=== PATIENT | male | born 1970 | race African-American/Black ===

== ENCOUNTER → 2016-03-03 | Outpatient (CLI) | payer OTHER ==
[~2016-03-03] MED LIST: ALBU2SYP9 INH
== END | disposition home or self-care (01) ==
LOC: C.LAB1850 10:41
PROVIDERS: ATTEND Internal Medicine Infectious Disease
DX: B18.2 Chronic viral hepatitis C (principal)

== ENCOUNTER 2016-04-01 03:18 | Emergency (ER) | payer OTHER ==
[~2016-04-01] VITALS: Ht 188 cm; Wt 89.7 kg
[2016-04-01 03:25] VITALS: TEMP 36.8; Ht 188 cm; Wt 89.7 kg
--- NOTE | 2016-04-01 04:29 | EMERGENCY ROOM VISIT NOTE ---
History First contact with patient: 03:30 Chief Complaint: FALL Stated Complaint: FALL--WORK RELATED History of Present Illness The patient is a 45 year old male who presents to the Emergency Room with complaints of a fall which occurred just prior to arrival. 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 He fell backward and struck his head. He is unsure if he lost consciousness. He states that he did have the wind knocked out of him. He reports pain in his head, neck, in the middle of his chest. He reports some mild left shoulder pain. He denies any nausea, vomiting, confusion, blurred vision, slurred speech, numbness or weakness. He denies any other injuries. He rates his overall discomfort a 5/ 10. He has not taken any medications for his pain. Review of Systems A complete 6-point Review of Systems was discussed with the patient, with pertinent positives and negatives listed in the History of Present Illness. All remaining Review of Systems questions can be considered negative unless otherwise specified. Past Medical/Surgical History Medical Problems: (1) Chest pain (2) Heroin abuse (3) Hip pain (4) Rash Family History Diabetes mellitus FH: cancer FHx: hypertension Social History Smoking Status: Never Smoker Alcohol Use: occasionally Drug Use: heroin Marital Status: in relationship Housing Status: lives with significant other Occupation Status: employed Current/Historical Medications Scheduled PRN Albuterol Sulf (Ventolin), 1-2 PUFF INH for Shortness of Breath Allergies Coded Allergies: No Known Allergies (Unverified , 01/12/16) Physical Exam Vital Signs Date Time Temp Pulse Resp B/P Pulse Ox O2 Delivery O2 Flow Rate FiO2 04/01/16 04:34 63 20 125/73 98 04/01/16 03:25 36.8 70 20 121/80 98 Room Air Physical Exam VITALS: Vitals are noted on the nurse's note and reviewed by myself. Vital signs stable. GENERAL: This is a 45-year-old male, in no acute distress, nondiaphoretic, well- developed well-nourished. SKIN: Capillary reflex less than 2 seconds. HEENT: Normocephalic. PERRLA. EOMI. Nares patent. Mucous membranes moist. Neck is supple without nuchal rigidity. HEART: Regular rate and rhythm without murmurs gallops or rubs. LUNGS: Clear to auscultation bilaterally without wheezes, rales or rhonchi. ABDOMEN: Positive bowel sounds x 4. Soft, nontender. MUSCULOSKELETAL: Mild tenderness over the cervical spine. There is tenderness over the anterior and superior left shoulder. No tenderness of the chest. NEURO: Patient was alert and oriented to person place and time. Normal sensation to light and sharp touch. Deep tendon reflexes 2+ throughout. No focal neurological deficits. Medical Decision & Procedures ER Provider Diagnostic Interpretation: CT HEAD: No acute intracranial abnormality. No acute osseous abnormality. The paranasal sinuses are patent. CT C-SPINE: No acute fracture or traumatic malalignment of the cervical spine. Radiologist: Narciso Brandon MD Medical Decision Differential diagnosis includes closed head injury, fracture, contusion, among others. The patient was evaluated as above. Labs were drawn and IV access was obtained. Imaging studies were performed and read by radiology as above. The patient declined analgesics. The patient was reassessed multiple times during their stay in the emergency department and remained in stable condition. The patient is a 45-year-old female who presents today after a fall. CT of the head and neck were performed and read by a statrad with no acute findings. A single view chest x-ray and left shoulder x-ray were performed due to the patient's complaints of left shoulder pain and central chest pain and were read by myself and my attending with no acute fractures of the left shoulder and no evidence of pneumothorax. The patient was informed of all findings. He will follow-up with his primary care provider as needed. He verbalized understanding of my assessment and treatment plan was discharged home in good condition. Impression Primary Impression: Closed head injury Additional Impressions: Contusion of multiple sites Work related injury Departure Information Dispostion Home / Self-Care Condition GOOD Referrals No Doctor, Assigned (PCP) Patient Instructions My [facility] Additional Instructions You have been treated in the Emergency Department for a Closed Head Injury. CT Scan of your head/brain demonstrated no acute bleeding or other abnormalities. This does not completely rule out the risk for future damage to the brain. For pain control, you can use the following stdu-utv-qyoxdjh medicines (if >12 yo): - Regular strength (325mg/tab) Tylenol (acetaminophen) 2 tabs every 4-6 hours as needed. Do not exceed 12 tablets in a 24 hour period. Avoid taking more than 4 grams (4000 mg) of Tylenol per day. This includes any other sources of acetaminophen you may take on a regular basis. - Regular strength (200 mg/tab) Advil (ibuprofen) 1-2 tabs every 4-6 hours as needed. Do not exceed a dose of 3200 mg per day. Follow-up with the Workmen's Compensation provider in 3-4 days for further evaluation. Return to the Emergency Department if your current symptoms worsen despite treatment course outlined above, or if you develop any of the following symptoms : intractable pain despite aforementioned treatment course, visual disturbances , loss of vision, unilateral weakness or facial drooping, slurring of speech, loss of coordination, or loss of consciousness. Problem Qualifiers Primary Impression: Closed head injury Encounter type: initial encounter Qualified Codes: S09.90XA - Unspecified injury of head, initial encounter
[2016-04-01 04:34] VITALS: BP 125/73; PULSE 63; O2SAT 98
--- NOTE | 2016-04-01 06:34 | DIAGNOSTIC IMAGING REPORT ---
CHEST ONE VIEW PORTABLE CLINICAL HISTORY: fall, chest pain trauma. Pain. COMPARISON STUDY: 12/18/2015 FINDINGS: The bones soft tissues and hemidiaphragms are normal. The cardiomediastinal silhouette is normal. The lungs are clear. The pulmonary vasculature is normal. IMPRESSION: Negative chest. Electronically signed by: Chaitanya Spence M.D. 04/01/2016 6:33 AM Dictated Date/Time: 04/01/2016 6:32 AM
--- NOTE | 2016-04-01 06:43 | DIAGNOSTIC IMAGING REPORT ---
LEFT SHOULDER MIN 2 VIEWS ROUTINE CLINICAL HISTORY: fall, left shoulder pain trauma COMPARISON: None. DISCUSSION: Nondisplaced cortical fractures left third and fourth ribs. Shoulder itself is negative for acute bony abnormality. There is no evidence for soft tissue swelling. IMPRESSION: Nondisplaced cortical fractures left third and fourth ribs. The shoulder specifically is negative. Electronically signed by: Chaitanya Spence M.D. 04/01/2016 6:41 AM Dictated Date/Time: 04/01/2016 6:41 AM
--- NOTE | 2016-04-01 06:46 | DIAGNOSTIC IMAGING REPORT ---
HEAD CT NONCONTRAST CT DOSE: 1151.49 mGy.cm HISTORY: Trauma fall, head injury TECHNIQUE: Multiaxial CT images of the head were performed without the use of intravenous contrast. Comparison: None. Findings: The paranasal sinuses and mastoid air cells are clear. The calvarium and skull base are intact. The ventricles and sulci are within normal limits. There is no mass, hematoma, midline shift, or acute infarct. Impression: No acute intracranial abnormality. Electronically signed by: Chaitanya Spence M.D. 04/01/2016 6:45 AM Dictated Date/Time: 04/01/2016 6:43 AM
--- NOTE | 2016-04-01 06:55 | DIAGNOSTIC IMAGING REPORT ---
CERVICAL SPINE CT CT DOSE: HISTORY: Trauma. Pain. fall, neck pain TECHNIQUE: Multiaxial CT images of the cervical spine were performed and reformatted in the sagittal and coronal plane without the use of contrast. COMPARISON: None. FINDINGS: No fractures. No subluxation. Prevertebral soft tissues and the C1-C2 interval are intact. No pneumothorax. IMPRESSION: No fractures within the cervical spine. Electronically signed by: Chaitanya Spence M.D. 04/01/2016 6:54 AM Dictated Date/Time: 04/01/2016 6:53 AM
== END 2016-04-01 04:35 | disposition home or self-care (01) ==
LOC: C.EDB 03:18 → C.EDA 04:35
DX: S09.90XA Unspecified injury of head, initial encounter (principal); T14.8 Other injury of unspecified body region; W00.0XXA Fall on same level due to ice and snow, initial encounter; Y99.0 Civilian activity done for income or pay

== ENCOUNTER → 2016-06-04 | Outpatient (CLI) | payer OTHER ==
[~2016-06-04] MED LIST changes: +PRED50TA PO
[2016-06-04 15:10] LABS: ALT/SGPT 335 U/L (12-78); AST/SGOT 242 U/L (15-37); BLOOD UREA NITROGEN 9 mg/dl (7-18); BUN/CREATININE RATIO 10.3 (10-20); CALCIUM 8.4 mg/dl (8.5-10.1); CARBON DIOXIDE 30 mmol/L (21-32); CHLORIDE 107 mmol/L (98-107); CREATININE 0.92 mg/dl (0.60-1.40); GLUCOSE 120 mg/dl (70-99); POTASSIUM 3.8 mmol/L (3.5-5.1); SODIUM 142 mmol/L (136-145)
[2016-06-04 15:13] LABS: ALB/GLOB RATIO 0.7 (0.9-2); ALKALINE PHOSPHATASE 112 U/L (45-117)
[2016-06-04 16:32] LABS: BASO ABS # 0.04 K/uL (0-0.2); BASOPHIL % 0.9 % (0-2); COMPLETE YES; EOSINOPHIL % 0.9 %; HEMATOCRIT 43.5 % (42-52); LARGE PLATELETS 1+; LYMPH ABS # 1.34 K/uL (1.2-3.4); LYMPHOCYTE % 29.7 %; MEAN CELL VOLUME 93.5 fL (80-100); MEAN CORPUSCULAR HEMOGLOBIN 31.6 pg (25-34); MEAN CORPUSCULAR HGB CONC 33.8 g/dl (32-36); MEAN PLATELET VOLUME 14.1 fL (7.4-10.4); NEUTROPHILS % 43.3 %; PLATELET COUNT 132 K/uL (130-400); PLT ESTIMATE DECREASED; RED BLOOD COUNT 4.65 M/uL (4.7-6.1); SMUDGE CELLS PRESENT; VARIANT LYM ABS # 0.73 K/uL; VARIANT LYMPHOCYTE % 16.2 %
[2016-06-07 07:46] LABS: HEPATITIS C VIRAL RNA BY PCR <15 NOT DETECTED IU/ML (<15); HEPATITIS C VIRAL RNA(LOG) PCR <1.18 NOT DETECTED LOG IU/ML (<1.18)
== END | disposition home or self-care (01) ==
LOC: C.LAB1850 12:40
PROVIDERS: ATTEND Internal Medicine Infectious Disease
DX: B18.2 Chronic viral hepatitis C (principal)

== ENCOUNTER → 2016-09-22 | Outpatient (CLI) | payer OTHER ==
[~2016-09-22] MED LIST changes: -PRED50TA PO
[2016-09-22 13:59] LABS: BASO % 0.2 %; BASO ABS # 0.01 K/uL (0-0.2); COMPLETE YES; EOS % 1.4 %; HEMATOCRIT 41.6 % (42-52); LARGE PLATELETS 1+; LYMPH % 47.8 %; LYMPH ABS # 2.05 K/uL (1.2-3.4); MEAN CELL VOLUME 95.6 fL (80-100); MEAN CORPUSCULAR HGB CONC 32.5 g/dl (32-36); MEAN PLATELET VOLUME 13.7 fL (7.4-10.4); MONO % 17.7 %; NEUT % 32.9 %; PLATELET COUNT 88 K/uL (130-400); PLT ESTIMATE DECREASED; RED BLOOD COUNT 4.35 M/uL (4.7-6.1); WHITE BLOOD COUNT 4.29 K/uL (4.8-10.8)
[2016-09-22 14:13] LABS: ALB/GLOB RATIO 0.6 (0.9-2); ALT/SGPT 255 U/L (12-78); AST/SGOT 240 U/L (15-37); BLOOD UREA NITROGEN 8 mg/dl (7-18); BUN/CREATININE RATIO 9.5 (10-20); CALCIUM 8.2 mg/dl (8.5-10.1); CARBON DIOXIDE 29 mmol/L (21-32); CHLORIDE 111 mmol/L (98-107); CREATININE 0.82 mg/dl (0.60-1.40); GLUCOSE 88 mg/dl (70-99); POTASSIUM 3.8 mmol/L (3.5-5.1); SODIUM 142 mmol/L (136-145)
[2016-09-22 14:14] LABS: ALKALINE PHOSPHATASE 103 U/L (45-117)
[2016-09-25 12:43] LABS: HEPATITIS C VIRAL RNA BY PCR <15 NOT DETECTED IU/ML (<15); HEPATITIS C VIRAL RNA(LOG) PCR <1.18 NOT DETECTED LOG IU/ML (<1.18)
== END | disposition home or self-care (01) ==
LOC: C.LAB1850 12:15
PROVIDERS: ATTEND Internal Medicine Infectious Disease
DX: B18.2 Chronic viral hepatitis C (principal)

== ENCOUNTER 2016-11-09 12:25 | Emergency (ER) | payer OTHER ==
[~2016-11-09] VITALS: Ht 188 cm; Wt 94.3 kg
[2016-11-09 12:41] VITALS: BP 151/65; PULSE 82; TEMP 36.6; O2SAT 98; Ht 188 cm; Wt 94.3 kg
[2016-11-09] MEDS ORDERED: AZITHROMYCIN 250 MG TAB PO STA (13:16)
[2016-11-09] MEDS ORDERED: CEFTRIAXONE SOD 350MG/ML 1 GM VIAL IM STA (13:16)
--- NOTE | 2016-11-09 13:19 | EMERGENCY ROOM VISIT NOTE ---
History First contact with patient: 13:04 Chief Complaint: PENILE DISCHARGE Stated Complaint: DISCHARGE Nursing Triage Summary: Pt reports yellow discharge from penis that started yesterday. Denies pain with urination. "I have two partners and somebody isn't right." History of Present Illness The patient is a 45 year old male who presents to the Emergency Room via private vehicle with complaints of "penile discharge". Patient states that he has 2 partners, and a few days ago had sexual intercourse with one of them and yesterday began noticing a yellowish white discharge from his penis. He denies any dysuria or pain. He has a history of chlamydia in the past. Review of Systems A complete 6-point Review of Systems was discussed with the patient, with pertinent positives and negatives listed in the History of Present Illness. All remaining Review of Systems questions can be considered negative unless otherwise specified. Past Medical/Surgical History Medical Problems: (1) Chest pain (2) Heroin abuse (3) Hip pain (4) Rash Family History Diabetes mellitus FH: cancer FHx: hypertension Social History Smoking Status: Current Every Day Smoker Alcohol Use: occasionally Drug Use: heroin Marital Status: in relationship Housing Status: lives with significant other Occupation Status: employed Current/Historical Medications No Active Prescriptions or Reported Meds Physical Exam Vital Signs Date Time Temp Pulse Resp B/P (MAP) Pulse Ox O2 Delivery O2 Flow Rate FiO2 11/09/16 12:41 36.6 82 18 151/65 98 Room Air Physical Exam VITAL SIGNS - Vital signs and nursing notes were reviewed. Stable. Hypertensive. GENERAL -45-year-old male appearing his stated age who is in no acute distress. Communicates well with provider and answers questions appropriately. SKIN - Without rashes. : There is cloudy white penile discharge, no tenderness. No lesions. Medical Decision & Procedures Laboratory Results Test 11/09/16 13:15 Medications Administered Medications (Trade) Dose Ordered Sig/Lora Route Start Time Stop Time Status Last Admin Dose Admin Ceftriaxone Sodium (Rocephin Im) 250 mg NOW STAT IM 11/09/16 13:16 11/09/16 13:19 DC 11/09/16 13:31 250 MG Azithromycin (Zithromax Tab) 1,000 mg NOW STAT PO 11/09/16 13:16 11/09/16 13:19 DC 11/09/16 13:30 1,000 MG Medical Decision Patient was seen and evaluated as above. He presents to us today with penile discharge. No other symptoms. He'll be treated empirically for gonorrhea/ chlamydia with 1 g of azithromycin and 250 mg of Rocephin. He is to refrain from sexual activity until he has results, and notify all sexual partners. He is to follow-up with his family doctor for elevated blood pressure. He is to return with worsening. He was educated upon worrisome symptoms which to return , had questions on discharge, and was discharged home in good condition. He is to call if the results are not called to him within the next few days. In the evaluation treatment this patient following differential diagnoses were entertained: Chlamydia, gonorrhea, among others. Impression Primary Impression: Penile discharge Departure Information Dispostion Home / Self-Care Condition GOOD Prescriptions No Active Prescriptions or Reported Meds Referrals No Doctor, Assigned (PCP) Patient Instructions My [facility] Additional Instructions You have been treated in the Emergency Department for penile discharge. You have been treated approriately You will be notified with the results, and if you do not hear back from us within the next few days please call back here at [phone] Please refrain from sexual intercourse until you have the results. Please notify any partners. Return to the emergency department if your symptoms worsen despite treatment course outlined above. Drink plenty of water and stay well hydrated. As with any trip to the Emergency Department, you should follow-up with your Primary Care Provider from today's visit. Return to the emergency department if your symptoms persist despite treatment plan outlined above or if the following symptoms occur: increased fevers, chills , low back pain, nausea/vomiting, or blood in your urine. Negative for your time.
[2016-11-11 14:58] LABS: CHLAMYDIA TRACH RNA*** NOT DETECTED (NOT DETECTED); GC (NEIS GONORRHOEAE)RNA** NOT DETECTED (NOT DETECTED)
== END 2016-11-09 13:47 | disposition home or self-care (01) ==
LOC: C.EDB 12:29 → C.EDD 13:47
DX: R36.9 Urethral discharge, unspecified (principal); F11.10 Opioid abuse, uncomplicated; F17.210 Nicotine dependence, cigarettes, uncomplicated; Z83.3 Family history of diabetes mellitus; Z80.9 Family history of malignant neoplasm, unspecified; Z82.49 Family history of ischemic heart disease and other diseases of the circulatory system

== ENCOUNTER 2017-01-11 02:03 | Emergency (ER) | payer OTHER ==
[~2017-01-11] VITALS: Ht 188 cm; Wt 92.1 kg
[2017-01-11 02:07] VITALS: TEMP 36.9; Ht 188 cm; Wt 92.1 kg
[2017-01-11] MEDS ORDERED: PRED50TA PO (02:32)
[2017-01-11 02:42] VITALS: BP 131/78; PULSE 76; O2SAT 100
--- NOTE | 2017-01-11 06:22 | EMERGENCY ROOM VISIT NOTE ---
ED Visit Note First contact with patient: 02:11 CHIEF COMPLAINT: Rash HISTORY OF PRESENT ILLNESS: This 46-year-old male patient presents to the emergency department complaining of a rash which started about 2 weeks ago. The patient believes that he started with a rash after sleeping in a hotel. He is concerned that he may have been bitten by something. The rash is primarily on his bilateral legs and lower abdomen. The patient denies fever, chills, nausea, or loss of appetite. They deny any URI symptoms. The patient has tried slmj-xyl-[id number] rid without improvement. The patient states the rash is itchy and rates the discomfort as 5/10. No change in food, soap, detergents, or other environmental factors. No new medications. No weakness or numbness. REVIEW OF SYSTEMS: A 6 system review of systems was completed with positives and pertinent negatives listed in the HPI. ALLERGIES: No known allergies MEDICATIONS: See EMR PMH: See EMR SOCIAL HISTORY: Lives locally PHYSICAL EXAM: VITALS: Vitals are noted on the nurse's note and reviewed by myself. Vital signs stable. GENERAL: Well-developed, well-nourished, black male, who is in no acute distress and resting comfortably. Patient is cooperative with the examination. MOUTH: Mucous membranes moist. Tonsils are not enlarged. Pharynx without erythema, blood, or exudate. Uvula midline. Airway patent. NECK: Supple without nuchal rigidity. No lymphadenopathy. No thyromegaly. Cervical spine is nontender. HEART: Regular rate and rhythm without murmurs gallops or rubs. LUNGS: Clear to auscultation bilaterally without wheezes, rales or rhonchi. No retractions or accessory muscle use. SKIN: The skin was with scattered areas of maculopapular rash primarily on the bilateral thighs and lower abdomen. Several areas are excoriated and difficult to identify EMERGENCY DEPARTMENT COURSE: Physical examination were performed. Nursing notes and EMR were reviewed. The patient evidently has a rash for the past few weeks. He does not appear toxic on examination. His rash is roughly in the distribution of boxer briefs, and this could be related to a number of causes. I will treat the patient with a course of prednisone and have him use Benadryl. He was asked to follow with his primary care physician for further care and management. He was pleased with plan of care voice understanding. Problem List Medical Problems: (1) Chest pain Status: Resolved (2) Heroin abuse Status: Resolved (3) Hip pain Status: Resolved (4) Rash Status: Resolved Current/Historical Medications Scheduled Prednisone (Prednisone), 50 MG PO DAILY Allergies Coded Allergies: No Known Allergies (Unverified , 01/11/17) Vital Signs Date Time Temp Pulse Resp B/P (MAP) Pulse Ox O2 Delivery O2 Flow Rate FiO2 01/11/17 02:42 76 18 131/78 100 01/11/17 02:07 36.9 78 18 135/78 96 Room Air Medications Administered Medications (Trade) Dose Ordered Sig/Lora Route Start Time Stop Time Status Last Admin Dose Admin Prednisone (PredniSONE TAB) 40 mg NOW STAT PO 01/11/17 02:31 01/11/17 02:32 DC 01/11/17 02:38 40 MG Departure Information Impression Primary Impression: Rash and nonspecific skin eruption Dispostion Home / Self-Care Condition GOOD Prescriptions Prednisone (Prednisone) 50 Mg Tab 50 MG PO DAILY for 4 Days, #4 TAB Prov: Nba Rockwell PA-C 01/11/17 Forms HOME CARE DOCUMENTATION FORM, IMPORTANT VISIT INFORMATION Patient Instructions My [facility] Additional Instructions You were seen and evaluated today on an emergency basis only. This is not a substitute for, or an effort to provide, complete comprehensive medical care. It is not possible to recognize and treat all injuries or illnesses in a single emergency department visit. For this reason it is recommended that you followup with your primary care physician this week for ongoing care and evaluation. Take prednisone as prescribed You are welcome to return to the emergency department anytime with new, worsening, or concerning symptoms.
== END 2017-01-11 02:43 | disposition home or self-care (01) ==
LOC: C.EDB 02:04
DX: R21 Rash and other nonspecific skin eruption (principal)

== ENCOUNTER 2017-06-03 16:50 | Emergency (ER) | payer OTHER ==
[~2017-06-03] VITALS: Ht 188 cm; Wt 90.8 kg
[2017-06-03 17:16] VITALS: TEMP 36.7; Ht 188 cm; Wt 90.8 kg
[2017-06-03] MEDS ORDERED: AZITHROMYCIN 250 MG TAB PO STA (18:00)
[2017-06-03] MEDS ORDERED: CEFTRIAXONE SOD 350MG/ML 1 GM VIAL IM STA (18:00)
--- NOTE | 2017-06-03 18:02 | EMERGENCY ROOM VISIT NOTE ---
History Report prepared by Joey: Brayden Steele Under the Supervision of: Dr. Carlton Giraldo D.O. First contact with patient: 17:55 Chief Complaint: STD MALE Stated Complaint: STD Nursing Triage Summary: penile disharge and burning with urination began 06/01/17 History of Present Illness The patient is a 46 year old male who presents to the Emergency Room with complaints of a persistent need for an STD check that started 2 days ago. He states that he has a history of an STD with the same 2 women. He says that this happened a couple months ago, and his symptoms went away. He thinks that the medications were a shot and an antibiotic. The patient says that he has been having penile discharge and burning with urination. He denies any testicular pain, joint pain, or joint swelling. The patient does not take any daily medications. Source of History: patient Onset: 2 days ago Position: other (global) Quality: other (need for STD check) Timing: other (persistent) Associated Symptoms: + urinary symptoms Note: Associated symptoms: Penile discharge. Denies testicular pain, joint pain, joint swelling. Review of Systems See HPI for pertinent positives & negatives. A total of 10 systems reviewed and were otherwise negative. Past Medical & Surgical Medical Problems: (1) Chest pain (2) Heroin abuse (3) Hip pain (4) Rash Family History Diabetes mellitus FH: cancer FHx: hypertension Social History Smoking Status: Current Every Day Smoker Alcohol Use: occasionally Drug Use: heroin Marital Status: in relationship Housing Status: lives with significant other Occupation Status: employed Current/Historical Medications Scheduled Doxycycline (Monohydrate) (Doxycycline Monohydrate), 100 MG PO BID Allergies Coded Allergies: No Known Allergies (Unverified , 06/03/17) Physical Exam Vital Signs Date Time Temp Pulse Resp B/P (MAP) Pulse Ox O2 Delivery O2 Flow Rate FiO2 06/03/17 18:31 77 18 144/87 98 Room Air 06/03/17 17:16 36.7 85 16 150/69 99 Room Air Physical Exam GENERAL: Patient is awake, alert, and in no acute distress. Patient is resting comfortably and showing no signs of anxiety EYES: The conjunctivae are clear. The pupils are round and reactive. EARS, NOSE, MOUTH AND THROAT: The nose is without any evidence of any deformity. Mucous membranes are moist tongue is midline NECK: The neck is nontender and supple. RESPIRATORY: Normal respiratory effort is noted there is no evidence of wheezing rhonchi or rales CARDIOVASCULAR: Regular rate and rhythm noted there no murmurs rubs or gallops normal S1 normal S2 GASTROINTESTINAL: The abdomen is soft. Bowel sounds are present in all quadrants. Abdomen is nontender : Circumcised male genitalia noted. Testicles were descended and nontender bilaterally. Clear discharge noted at urethral meatus. MUSCULOSKELETAL/EXTREMITIES: There is no evidence of gross deformity full range of motion is noted in the hips and shoulders SKIN: There is no obvious evidence of any rash. There are no petechiae, pallor or cyanosis noted. NEUROLOGIC: Patient is awake alert and oriented x3. Medical Decision & Procedures Laboratory Results Test 06/03/17 18:00 Medications Administered Medications (Trade) Dose Ordered Sig/Lora Route Start Time Stop Time Status Last Admin Dose Admin Ceftriaxone Sodium (Rocephin Im) 250 mg NOW STAT IM 06/03/17 18:00 4 18:01 DC 06/03/17 18:30 250 MG Azithromycin (Zithromax Tab) 2,000 mg NOW STAT PO 06/03/17 18:00 06/03/17 18:01 DC 06/03/17 18:31 2,000 MG ED Course 1757: The patient was evaluated in room D5. A complete history and physical examination were performed. I discussed the results and treatment plan with him. He verbalized agreement of the treatment plan. He was discharged home. 1800: Zithromax Tab 2000 mg PO, Rocephin IM 250 mg. Medical Decision Nursing notes reviewed. Differential diagnosis in this patient could include sexually transmitted disease, inflammatory urethritis, foreign body, trauma, and other differential diagnoses were considered. The patient is a 46-year-old male who presented to the emergency department for urethritis. The patient has been seen in our facility for similar problems in the past. At that time he was treated with Rocephin and Zithromax with good resolution of symptoms. The patient did have a swab that was sent for gonorrhea and Chlamydia testing. He had no signs of herpetic lesions on exam. He was encouraged to continue all medications as prescribed and follow-up with his primary care physician for reevaluation. He was also encouraged to inform all sexual contacts that they need to be tested and treated. He was also encouraged to return to the emergency department immediately if symptoms change worsen or the need arises. Medication Reconcilliation Current Medication List: was personally reviewed by me Blood Pressure Screening Patient's blood pressure: Elevated blood pressure Blood pressure disposition: Elevated BP felt to be situational Impression Primary Impression: Urethritis Scribe Attestation The scribe's documentation has been prepared under my direction and personally reviewed by me in its entirety. I confirm that the note above accurately reflects all work, treatment, procedures, and medical decision making performed by me. Departure Information Dispostion Home / Self-Care Prescriptions Doxycycline (Monohydrate) (DOXYCYCLINE MONOHYDRATE) 100 Mg Tab 100 MG PO BID, #14 TABS Prov: Carlton Giraldo, DO 06/03/17 Referrals No Doctor, Assigned (PCP) Patient Instructions My [facility], Urethritis Men Additional Instructions Continue all medications as prescribed. Continue using Motrin and Tylenol as directed for pain. Follow-up with your family doctor for reevaluation. Be sure all sexual contacts get tested and treated for STDs. They should be checked whether or not they are symptomatic. Continue to use barrier protection such as condoms until you are completely asymptomatic and cleared of all STDs.
[2017-06-03] MEDS ORDERED: DOXY100T17 PO (18:06)
[2017-06-03 18:31] VITALS: BP 144/87; PULSE 77; O2SAT 98
== END 2017-06-03 18:52 | disposition home or self-care (01) ==
LOC: C.EDB 16:51 → C.EDD 18:52
DX: N34.2 Other urethritis (principal); Z83.3 Family history of diabetes mellitus; F17.200 Nicotine dependence, unspecified, uncomplicated; F11.20 Opioid dependence, uncomplicated

== ENCOUNTER 2017-10-05 18:31 | Emergency (ER) | payer OTHER ==
[~2017-10-05] VITALS: Ht 188 cm; Wt 82.1 kg
[~2017-10-05 18:31] MED LIST changes: -ALBU2SYP9 INH; +DOXY100T17 PO
[2017-10-05 18:43] VITALS: BP 127/76; PULSE 75; TEMP 36.9; O2SAT 99; Ht 188 cm; Wt 82.1 kg
[2017-10-05] MEDS ORDERED: CEPHALEXIN 500MG HOME PACK 1 EA BTL PO ONE (19:00)
[2017-10-05] MEDS ORDERED: CEPHALEXIN MONOHYDRATE 250 MG CAP PO ONE (19:00)
[2017-10-05] MEDS ORDERED: CEPH500C2 PO (19:01)
[2017-10-05] MEDS ORDERED: DIPHTHERIA/TETANUS/PERTUSSIS 0.5 ML SYR/VIAL IM. ONE (19:15)
--- NOTE | 2017-10-05 20:02 | EMERGENCY ROOM VISIT NOTE ---
History Report prepared by Joey: Rachael Narayan Under the Supervision of: Dr. Jhonathan Treadwell M.D. First contact with patient: 18:45 Chief Complaint: WOUND INFECTION Stated Complaint: OPEN CUT ON RIGHT LEG AND LEFT LEG Nursing Triage Summary: Patient presents to ed with complaints of wound to right lawrence not healing properly. PT stated "I hit my right leg off of a car door about a month ago and it just isn't healing up." Bleeding controlled at this time. History of Present Illness The patient is a 46 year old male who presents to the Emergency Room with complaints of constant wound infections on both of his legs that onset 2.5 weeks ago. The patient notes that he banged his leg on a car door and a bed frame. The patient states that he has been picking at his wounds. He denies fever, back pain, leg pain, and discharge from the wounds. The patient states that his tetanus is not up to date. Source of History: patient Onset: 2.5 weeks ago Position: leg (bilateral) Timing: constant Modifying Factors (Worsening): other (picking at the wounds) Associated Symptoms: No fevers, No back pain Note: The patient denies leg pain and discharge from his wounds. Review of Systems See HPI for pertinent positives and negatives. A total of ten systems were reviewed and were otherwise negative. Past Medical & Surgical Medical Problems: (1) Chest pain (2) Heroin abuse (3) Hip pain (4) Rash Family History Diabetes mellitus FH: cancer FHx: hypertension Social History Smoking Status: Current Every Day Smoker Alcohol Use: occasionally Drug Use: heroin Marital Status: in relationship Housing Status: lives with significant other Occupation Status: employed Current/Historical Medications Scheduled Cephalexin Monohydrate (Keflex), 500 MG PO QID Doxycycline (Monohydrate) (Doxycycline Monohydrate), 100 MG PO BID Allergies Coded Allergies: No Known Allergies (Unverified , 06/03/17) Physical Exam Vital Signs Date Time Temp Pulse Resp B/P (MAP) Pulse Ox O2 Delivery O2 Flow Rate FiO2 10/05/17 18:43 36.9 75 20 127/76 99 Room Air Physical Exam GENERAL: Awake, alert, well-appearing, in no distress. HENT: Normocephalic, atraumatic. Oropharynx unremarkable. Poor dentition EYES: Normal conjunctiva. Sclera non-icteric. NECK: Supple. No nuchal rigidity. RESPIRATORY: Clear to auscultation. No wheezes. Normal respiratory effort. CARDIAC: Normal rate. Normal rhythm. Extremities warm and well perfused. GI: Soft, non-distended. No tenderness to palpation. No rebound or guarding. RECTAL: Deferred. MUSCULOSKELETAL: Atraumatic. Chest examination reveals no tenderness. LOWER EXTREMITIES: Calves are equal size bilaterally and non-tender. 5 cm right mid tibia granulation wound with slight erythema. 2 cm distal tibial wound. No exposed bone or bony tenderness. No crepitus or fluctuance. Left proximal tibial papal present. 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 NEURO: Normal sensorium. No sensory or motor deficits noted. No facial droop. SKIN: Warm and dry. No rash or jaundice noted. Medical Decision & Procedures Medications Administered Medications (Trade) Dose Ordered Sig/Lora Route Start Time Stop Time Status Last Admin Dose Admin Cephalexin Monohydrate (Keflex Cap) 500 mg NOW ONCE PO 10/05/17 19:00 10/05/17 19:01 DC 10/05/17 19:08 500 MG Cephalexin Monohydrate (Keflex 500MG Home Pack) 1 homepack NOW ONCE PO 10/05/17 19:00 10/05/17 19:01 DC 10/05/17 19:00 1 HOMEPACK Diphtheria/ Pertussis/Tetanus Vacc (Adacel Inj) 0.5 ml ONCE ONCE IM. 10/05/17 19:15 10/05/17 19:16 DC 10/05/17 19:13 0.5 ML ED Course 1844: The patient was evaluated in room A3. A complete history and physical exam was performed. 1899: Ordered Cephalexin Monohydrate 1 homepack PO, Keflex Cap 500 mg, PO. 1914: Ordered Adacel Inj 0.5 ml IM. 1917: I reevaluated the patient. Discussed results and discharge instructions: he verbalized understanding and agreement. The patient is ready for discharge. Medical Decision Differential diagnosis: Etiologies such as cellulitis, abscess, MRSA infection, DVT, necrotizing fasciitis, dermatitis, drug eruption, as well as others were entertained.. treatment. Return instructions were outlined and the patient was discharged in stable condition. Patient presents after cutting his leg about a month ago on an edge of a car. Unsure tetanus status; this was updated today. Some slight tenderness around the wound on his right lawrence. States has been healing due to picking at it the wound has been very slow to heal at all . Given its size may have been amenable to sutures when it occurred but not now. No signs of Nec Fas or abscess. Doubt DVT. Wound is granulating and predominantly closed with some erythema present without significant discharge. No prior medical care for this. No systemic symptoms of other illness or sepsis. Denies other complaints. Some concerning signs of possible early cellulitis and will put on a brief course of Keflex. Wounds were cleaned and bandaged. Again tetanus was updated. Recommended he follow-up with her regular doctor and have the wound reevaluated. Discussed return criteria. Stable for discharge. Medication Reconcilliation Current Medication List: was personally reviewed by me Impression Primary Impression: Leg wound, right Additional Impression: Cellulitis of leg Scribe Attestation The scribe's documentation has been prepared under my direction and personally reviewed by me in its entirety. I confirm that the note above accurately reflects all work, treatment, procedures, and medical decision making performed by me. Departure Information Dispostion Home / Self-Care Prescriptions Cephalexin Monohydrate (KEFLEX) 500 Mg Cap 500 MG PO QID for 5 Days, #20 CAP Prov: Jhonathan Treadwell M.D. 10/05/17 Forms WORK / SCHOOL INSTRUCTIONS, HOME CARE DOCUMENTATION FORM, IMPORTANT VISIT INFORMATION Patient Instructions Wound Care, Wound Care Dc, [facility] Additional Instructions Please continue to monitor your wounds for any signs of worsening infection. Utilize the antibiotics prescribed. Please refrain from picking at your wounds. Please keep them dressed to promote healing. Would recommend follow- up with a primary care provider in the next week for reevaluation of your wounds. Please feel free to return here at any time for any concerns regarding her wounds or other problems. Problem Qualifiers Primary Impression: Leg wound, right Encounter type: initial encounter Qualified Codes: S81.801A - Unspecified open wound, right lower leg, initial encounter Additional Impression: Cellulitis of leg Laterality: right Qualified Codes: L03.115 - Cellulitis of right lower limb
== END 2017-10-05 19:12 | disposition home or self-care (01) ==
LOC: C.EDB 18:32 → C.EDA 19:12
DX: S81.801A Unspecified open wound, right lower leg, initial encounter (principal); W26.8XXA Contact with other sharp object(s), not elsewhere classified, initial encounter; L03.115 Cellulitis of right lower limb; Z23 Encounter for immunization; F17.200 Nicotine dependence, unspecified, uncomplicated

== ENCOUNTER 2017-10-14 17:18 | Emergency (ER) | payer OTHER ==
[~2017-10-14] VITALS: Ht 188 cm; Wt 81.6 kg
[2017-10-14 17:21] VITALS: TEMP 36.8; Ht 188 cm; Wt 81.6 kg
[2017-10-14] MEDS ORDERED: LIDOCAINE 1% BUFFERED INJ 20 ML VIAL INFIL STA (17:39)
[2017-10-14] MEDS ORDERED: CEPHALEXIN MONOHYDRATE 250 MG CAP PO STA (17:39)
[2017-10-14] MEDS ORDERED: SULFAMETHOXAZOLE/TRIMETHOPRIM DS 800/160MG TAB PO STA (17:39)
[2017-10-14] MEDS ORDERED: CEPH500C PO (18:25)
[2017-10-14] MEDS ORDERED: SULF800T23 PO (18:25)
--- NOTE | 2017-10-14 18:25 | EMERGENCY ROOM VISIT NOTE ---
ED Visit Note First contact with patient: 17:28 Chief Complaint: Left great Toe Ingrown Toenail, skin lesions on the posterior scalp and buttock History of Present Illness: This patient is a 46-year-old male who presents to the Emergency Department, ambulatory, for evaluation of their left great Toe Ingrown Toenail. Patient reports that they have been experiencing pain over the medial aspect of the left great Toe for 1.5 weeks. They report that they have tried no OTC remedies or medications. They have not had previous ingrown toenails in the past. They deny any numbness or tingling into the distal extremity. The patient also reports skin lesions on his buttocks and posterior scalp. He states these have been present for approximately 1-2 weeks. He thought they were pimples and has been attempting to pop them without relief. He denies any drainage from the wounds. They have tried no medications for the pain. Patient rates current discomfort as a 3/10. Patient denies fever, chills, nausea, vomiting, body aches, or other concerning symptoms. The patient is not diabetic. Patient's Tetanus status is currently up-to-date. Medications: None Allergies: None PMH: None SHx: The patient lives locally with family. He admits to smoking cigarettes. He denies drug, alcohol use. ROS: All pertinent positive and negative review of systems are appropriately documented in the History of Present Illness. Physical Exam: VITAL SIGNS - Vital signs and nursing notes were reviewed. GENERAL -46-year-old black male appearing his stated age who is in no acute distress. Communicates well with provider and answers questions appropriately. SKIN -erythematous, ulcerative lesions on the posterior scalp and right buttock. The year is no active drainage or surrounding erythema. There is no abscess palpable. MUSCULOSKELETAL - There is edema and erythema noted on the medial aspect of the left distal Great Toe. This area is extremely tender to palpation. There is purulent drainage appreciated. No erythema extending up the toe. No lymphangitic streaking appreciated. Patient has full range of motion of the toe. NEUROLOGIC - Spinothalamic tract was found to be intact with ability to discriminate sharp versus dull sensation throughout the left great toe and foot. No sensory defects of the dorsal column were appreciated utilizing light touch for evaluation. VASCULAR - Capillary refill was <2 seconds. ED Course: Patient was seen and evaluated by myself. Costs and benefits of performing ingrown toenail excision were discussed with the patient who verbalizes understanding. Verbal consent was obtained prior to performing the procedure. 4 cc of 1% buffered lidocaine without epinephrine was used to perform a digital block of the first digit. The wound was cleansed and prepped in the typical sterile fashion utilizing normal saline and Betadine. The wound was sterilely draped. Once proper anesthetization was established, the medial aspect of the left Great toenail was from the nailbed and cuticle utilizing blunt dissection with a pair of scissors. This section of the nail was excised with a pair of hemostats. Forceps were used to remove the section of the toenail. The area was explored and no further material was present in the nailbed or cuticle. The area was copiously cleansed with normal saline and Betadine. The toe was dressed with an antibiotic ointment dressing. Patient tolerated the procedure well. No complications were met. Patient received initial dose of Keflex and Bactrim here in the ED. They will be placed on a short course of Keflex and Bactrim due to the ingrown toenail infection as well as other skin lesions as an outpatient. Patient educated on worrisome symptoms for return visit to the Emergency Department. Patient discharged to home afebrile and in good condition. I attest that I have personally reviewed the patient's current medication list. Patient was found to have normal blood pressure on screening and does not require follow-up. Differential diagnosis includes ingrown toenail, paronychia, infection, fungal, scabies, herpes, dermatitis, eczema, cellulitis, abscess, viral, musculoskeletal etiology, hepatic abnormality, malignancy, and others Impression: Left great Toe Ingrown Toenail - Excised, skin lesions The chart was completed utilizing [employer] Speech voice recognition software. Grammatical errors, random word insertions, pronoun errors, and incomplete sentences are an occasional consequence of this system due to software limitations, ambient noise, and hardware issues. Any formal questions or concerns about the content, text, or information contained within the body of this dictation should be directly addressed to the provider for clarification. Problem List Medical Problems: (1) Chest pain Status: Resolved (2) Heroin abuse Status: Resolved (3) Hip pain Status: Resolved (4) Rash Status: Resolved Current/Historical Medications Scheduled Cephalexin Monohydrate (Keflex), 500 MG PO QID Doxycycline (Monohydrate) (Doxycycline Monohydrate), 100 MG PO BID Sulfa/Trimethoprim (Bactrim Ds 800MG/160MG), 1 TAB PO BID Allergies Coded Allergies: No Known Allergies (Unverified , 06/03/17) Vital Signs Date Time Temp Pulse Resp B/P (MAP) Pulse Ox O2 Delivery O2 Flow Rate FiO2 10/14/17 18:38 75 18 121/70 96 Room Air 10/14/17 17:21 36.8 71 18 128/75 95 Room Air Medications Administered Medications (Trade) Dose Ordered Sig/Lora Route Start Time Stop Time Status Last Admin Dose Admin Lidocaine HCl (Buffered Lidocaine 1% Inj) 20 ml ONE STAT INFIL 10/14/17 17:39 10/14/17 17:41 DC 10/14/17 17:39 20 ML Cephalexin Monohydrate (Keflex Cap) 500 mg NOW STAT PO 10/14/17 17:39 10/14/17 17:41 DC 10/14/17 17:39 500 MG Trimethoprim/ Sulfamethoxazole (Septra Ds 800/ 160MG Tab) 1 tab NOW STAT PO 10/14/17 17:39 10/14/17 17:41 DC 10/14/17 17:39 1 TAB Departure Information Impression Primary Impression: Ingrown left greater toenail Additional Impression: Skin ulcer Dispostion Home / Self-Care Condition GOOD Prescriptions Sulfa/Trimethoprim (Bactrim Ds 800MG/160MG) Tab 1 TAB PO BID for 10 Days, #20 TAB Prov: Rose Almanza PA-C 10/14/17 Cephalexin Monohydrate (Keflex) 500 Mg Cap 500 MG PO QID for 10 Days, #40 CAP Prov: Rose Almanza PA-C 10/14/17 Referrals No Doctor, Assigned (PCP) Patient Instructions ED Ingrown Toenail Excised, [facility] Additional Instructions Please keep the toe covered with antibiotic ointment and a bandage for the next week. Proper wound care is essential for adequate wound healing and infection prevention. You can soak the foot/toe in an Epsom Salt bath or warm soapy water for comfort. Look for signs of infection of the wound including: increased pain, swelling, foul discharge, streaking, or increased temperature. If any of these are noticed you should return to the Emergency Department for further assessment and treatment. As with any removal of nail tissue, there is potential that you may not re-grow this portion of the nail. This may or may not be permanent. Cephalexin(Keflex) 500mg: Take one pill four times daily for 10 days for your skin infection. All antibiotics can cause diarrhea. If this occurs and you feel worse or it does not resolve in 1-2 days follow up with your doctor or return to the Emergency Department as this could be signs of serious underlying problems. Any medication can cause an allergic reaction, stop the pills immediately and return to the ER for rash, hives, breathing difficulties, or swelling. Trimethoprim-Sulfamethoxazole(Bactrim DS): Take one pill twice daily for 10 days for your skin infection. All antibiotics can cause diarrhea. If this occurs and you feel worse or it does not resolve in 1-2 days follow up with your doctor or return to the Emergency Department as this could be signs of serious underlying problems. Any medication can cause an allergic reaction, stop the pills immediately and return to the ER for rash, hives, breathing difficulties, or swelling. For pain control, you can use the following [id number] medicines (if >12 yo): Ibuprofen(Motrin, Advil) may be used for fever or pain. Use 600mg every six hours as needed. Take with food. Avoid using more than 2400mg in a 24 hour period. Do not use 2400mg per day for more than three consecutive days without physician direction. Prolonged inappropriate use can lead to stomach upset or ulcers. (AND/OR) Acetaminophen(Tylenol) may be used for fever or pain. Use 1000mg every six hours as needed. Avoid using more than 3000mg in a 24 hour period. Return to the emergency department if your symptoms worsen despite treatment course outlined above. Problem Qualifiers Additional Impression: Skin ulcer Non-pressure ulcer stage: unspecified non-pressure ulcer stage Qualified Codes: L98.499 - Non-pressure chronic ulcer of skin of other sites with unspecified severity
[2017-10-14 18:38] VITALS: BP 121/70; PULSE 75; O2SAT 96
== END 2017-10-14 18:52 | disposition home or self-care (01) ==
LOC: C.EDB 17:19 → C.EDD 18:52
DX: L60.0 Ingrowing nail (principal); L98.419 Non-pressure chronic ulcer of buttock with unspecified severity; L98.499 Non-pressure chronic ulcer of skin of other sites with unspecified severity; F17.210 Nicotine dependence, cigarettes, uncomplicated

== ENCOUNTER 2020-02-07 22:51 | Observation (INO) ==
[2020-02-07] MEDS ORDERED: ACETAMINOPHEN 500 MG TAB PO STA (23:11)
[2020-02-08 00:02] LABS: INR 1.2 (0.9-1.1); Partial Thromboplastin Ratio 1.2; Partial Thromboplastin Time 34.5 Seconds (21.0-31.0); Prothrombin Time 12.7 Seconds (9.0-12.0)
[2020-02-08 00:05] LABS: Alanine Aminotransferase 186 U/L (12-78); Aspartate Aminotransferase 308 U/L (15-37); Blood Urea Nitrogen 15 mg/dl (7-18); Calcium 8.2 mg/dl (8.5-10.1); Carbon Dioxide 25 mmol/L (21-32); Chloride 102 mmol/L (98-107); Creatinine Clr Calc Pharmacy 125.5 ml/min; Est GFR (African American) 122.7; Est GFR (Non-African American) 105.8; Glucose 82 mg/dl (70-99); Lipase 913 U/L (73-393); Potassium 3.9 mmol/L (3.5-5.1); Sodium 134 mmol/L (136-145)
[2020-02-08 00:10] LABS: Albumin Globulin Ratio 0.7 (0.9-2); Alkaline Phosphatase 74 U/L (45-117); Bilirubin,Total 0.7 mg/dl (0.2-1); Globulin 4.5 gm/dl (2.5-4.0); Total Protein 7.5 gm/dl (6.4-8.2); Troponin I < 0.015 ng/ml (0-0.045)
[2020-02-08 00:14] LABS: Basophils # (auto) 0.02 K/uL (0-0.2); Basophils % (auto) 0.3 %; Hemoglobin 12.7 g/dL (14.0-18.0); Immature Granulocytes # (auto) 0.01 K/uL (0.00-0.02); Immature Granulocytes % (auto) 0.2 %; Lymphocytes # (auto) 3.04 K/uL (1.2-3.4); Lymphocytes % (auto) 48.7 %; Mean Corpuscular Hemoglobin 31.4 pg (25-34); Mean Corpuscular Hgb Conc 33.4 g/dL (32-36); Mean Corpuscular Volume 94.1 fL (80-100); Mean Platelet Volume 12.9 fL (7.4-10.4); Monocytes # (auto) 0.81 K/uL (0.11-0.59); Neutrophils # (auto) 2.36 K/uL (1.4-6.5); Neutrophils % (auto) 37.8 %; Platelet Count 72 K/uL (130-400); Platelet Estimate Decreased (Normal); RDW Coefficient of Variation 13.6 % (11.5-14.5); RDW Standard Deviation 47.1 fL (36.4-46.3); Red Blood Count 4.04 M/uL (4.7-6.1); White Blood Count 6.24 K/uL (4.8-10.8)
[2020-02-08] MEDS ORDERED: VANCOMYCIN HCL 1,500 MG in SODIUM CHLORIDE 0.9% 500 ML IV ONE (00:24)
[2020-02-08] MEDS ORDERED: PIPERACILL/TAZOBAC CONSULT ACTIVE PRN (00:24)
[2020-02-08] MEDS ORDERED: PIPERACILLIN/TAZOBACTAM 4.5 GM/120 ML BAG IV ONE (00:24)
[2020-02-08] MEDS ORDERED: VANCOMYCIN CONSULT ACTIVE PRN ×2 (00:24→06:43)
[2020-02-08] MEDS ORDERED: OPTIRAY 320 125ml IV ONE (00:57)
--- NOTE | 2020-02-08 01:20 | Emergency Department Note ---
History of Present Illness General Chief complaint: Chest Pain Stated complaint: CHEST PAIN, COUGH Source: patient and RN notes reviewed Mode of arrival: ambulatory Limitations: no limitations History of Present Illness Provider complaint: Chest pain, cough Maximum Pain Intensity: 5 This patient is a 49-year-old male who presents to the emergency department with complaints of chest pain and cough. He states he has had some chest tightening. He is a smoker but denies any mucus production with the cough. Patient states he does not have a thermometer and is unclear if he has a temperature although has it checked every morning at work. This morning he had a normal temperature. 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 Patient states he also has a longstanding history of drug abuse and recently began again injecting heroin 2 weeks ago. He has a remote history of hepatitis C infection and had been treated with interferon. Patient denies any significant vomiting, diarrhea, abdominal pain, blood in the emesis or stools. Home Medications Medication Instructions Recorded Confirmed Type albuterol sulfate 1 puff INHALATION QID PRN 03/19/19 02/08/20 History Heroin 1 dose INJ DIRECTED 02/08/20 02/08/20 History azithromycin [Zithromax] 500 mg PO DAILY 3 Days #3 tab 02/09/20 Rx dexamethasone 6 mg PO DAILY 5 Days #15 tab 02/09/20 Rx Allergies Allergy/AdvReac Type Severity Reaction Status Date / Time No Known Allergies Allergy Verified 02/08/20 00:57 Past Med/Surg History Medical History (Updated 02/08/20 @ 06:40 by Jason Olmos MD) Asthma Heroin abuse Surgical History No pertinent past surgical history Family History Other Cancer Diabetes Social History Smoking Status: Current every day smoker Tobacco Type: Cigarettes Hx Substance Use: Yes Last Used Substance: Hours (ago) Preferred Language: Armenian Communication Ability: Effective Paid Search Marketing Analyst Required: No Beliefs That Will Affect Care: None Current Living Situation: Other Feels Safe at Home: Yes Assistive Devices: None Review of Systems See HPI for pertinent positives & negatives. and A total of 10 systems reviewed and were otherwise negative Physical Exam Vital Signs Vital Signs - 24 hr 02/07/20 23:02 02/07/20 23:12 02/07/20 23:20 Temperature 38.1 C H Temperature Source Temporal Artery Scan Pulse Rate 89 Pulse Rate [Right Finger] Respiratory Rate 20 Respiratory Effort / Characteristics Non-Labored Respiratory Depth Normal Blood Pressure 138/83 Blood Pressure [Right Arm] Blood Pressure Mean 101 Blood Pressure Mean [Right Arm] Pulse Oximetry 96 97 Oxygen Delivery Method Room Air Room Air Sepsis Recent Fever Within 48 Hours Yes Sepsis New/Unexplained Change in Mental Status N/A Sepsis Action Taken by Nursing No Action Required 02/07/20 23:32 02/08/20 00:18 02/08/20 00:52 Temperature 37.1 C Temperature Source Oral Pulse Rate Pulse Rate [Right Finger] 84 88 Respiratory Rate 18 20 Respiratory Effort / Characteristics Respiratory Depth Blood Pressure Blood Pressure [Right Arm] 152/71 H 153/79 H Blood Pressure Mean Blood Pressure Mean [Right Arm] 98 103 Pulse Oximetry 100 97 Oxygen Delivery Method Room Air Room Air Sepsis Recent Fever Within 48 Hours Sepsis New/Unexplained Change in Mental Status Sepsis Action Taken by Nursing Vital signs reviewed. General: Chronically ill-appearing 49-year-old male, in no significant distress. HEENT: No scleral icterus, PERRLA, neck supple. Atraumatic. Cardiovascular: Regular rate and rhythm, no extra sounds. Pulmonary: Clear to auscultation bilaterally, normal work of breathing. Abdomen: Soft, nontender, nondistended, positive bowel sounds. Musculoskeletal: Atraumatic, no peripheral edema. Neurologic: Patient awake alert and oriented x 3 Skin: Warm, dry, multiple track membreno of the bilateral forearms Course Administered Medications Discontinued Medications Acetaminophen (Acetaminophen 500 Mg Tab) 1,000 mg PO ONE STA Stop: 02/07/20 23:12 Last Admin: 02/07/20 23:29 Dose: 1,000 mg Documented by: [id number] Clonidine HCl (Clonidine Hcl 0.1 Mg Tab) 0.1 mg PO BID SHARMILA Stop: 03/09/20 08:59 Last Admin: 02/09/20 08:27 Dose: 0.1 mg Documented by: [id number] Admin: 02/08/20 21:01 Dose: 0.1 mg Documented by: [id number] Admin: 02/08/20 08:35 Dose: 0.1 mg Documented by: [id number] Dicyclomine HCl (Dicyclomine Hcl 10 Mg Cap) 10 mg PO NOW ONE Stop: 02/09/20 00:32 Last Admin: 02/09/20 00:56 Dose: 10 mg Documented by: [id number] Piperacillin Sod/Tazobactam Sod (Zosyn) 4.5 gm in 120 mls @ 240 mls/hr IV NOW ONE Stop: 02/08/20 00:53 Last Infusion: 02/08/20 01:01 Dose: 0 mls/hr Documented by: [id number] Admin: 02/08/20 00:32 Dose: 240 mls/hr Documented by: [id number] Vancomycin HCl 1,500 mg/ (Sodium Chloride) 530 mls @ 200 mls/hr IV NOW ONE Stop: 02/08/20 03:02 Last Infusion: 02/08/20 03:45 Dose: 0 mls/hr Documented by: [id number] Admin: 02/08/20 01:00 Dose: 200 mls/hr Documented by: [id number] Potassium Chloride/Sodium Chloride (Normal Saline W/20 Meq Kcl) 20 meq in 1,000 mls @ 100 mls/hr IV .Q10H SHARMILA Stop: 03/09/20 03:00 Last Admin: 02/08/20 23:46 Dose: 100 mls/hr Documented by: [id number] Infusion: 02/08/20 23:46 Dose: 100 mls/hr Documented by: [id number] Admin: 02/08/20 15:39 Dose: 100 mls/hr Documented by: [id number] Infusion: 02/08/20 15:39 Dose: 0 mls/hr Documented by: [id number] Infusion: 02/08/20 13:37 Dose: 0 mls/hr Documented by: [id number] Admin: 02/08/20 03:52 Dose: 100 mls/hr Documented by: [id number] Dexamethasone 6 mg/ Syringe 1.5 mls @ 1 mls/min IV QAM SHARMILA Stop: 02/18/20 09:02 Last Admin: 02/09/20 08:27 Dose: 1 mls/min Documented by: [id number] Dexamethasone Sodium Phosphate (10 mg/ Syringe) 2.5 mls @ 1 mls/min IV ONE ONE Stop: 02/08/20 03:32 Last Admin: 02/08/20 03:52 Dose: 1 mls/min Documented by: [id number] Piperacillin Sod/Tazobactam (Sod 3.375 gm/ Dextrose) 115 mls @ 28.75 mls/hr IV Q8H SHARMILA; Protocol Stop: 02/15/20 07:59 Last Infusion: 02/08/20 12:54 Dose: 0 mls/hr Documented by: [id number] Admin: 02/08/20 08:54 Dose: 28.8 mls/hr Documented by: [id number] Ceftriaxone Sodium 2,000 mg/ (Dextrose) 70 mls @ 140 mls/hr IV DAILY@1600 SHARMILA; Protocol Stop: 02/15/20 15:59 Last Infusion: 02/08/20 18:19 Dose: 0 mls/hr Documented by: [id number] Admin: 02/08/20 16:14 Dose: 140 mls/hr Documented by: [id number] Azithromycin 500 mg/ Dextrose 255 mls @ 127.5 mls/hr IV DAILY@1200 SHARMILA; Protocol Stop: 02/12/20 13:59 Last Infusion: 02/08/20 15:40 Dose: 0 mls/hr Documented by: [id number] Admin: 02/08/20 13:35 Dose: 127.5 mls/hr Documented by: [id number] Influenza Virus Vaccine Quadrival (Influenza Virus Quad Vaccine 0.5 Ml Syr) 0.5 ml IM .ONCE ONE Stop: 02/08/20 15:01 Last Admin: 02/09/20 08:40 Dose: Not Given Documented by: [id number] Ioversol (Optiray 320 125ml) 125 ml IV ONCE ONE Stop: 02/08/20 00:58 Last Admin: 02/08/20 00:58 Dose: 117 ml Documented by: [id number] Lorazepam (Lorazepam 0.5 Mg Tab) 0.5 mg PO NOW STA Stop: 02/09/20 00:33 Last Admin: 02/09/20 00:56 Dose: 0.5 mg Documented by: [id number] Miscellaneous (Remove Nicoderm Patch) 1 ea N/A DAILY@0859 [facility] Stop: 03/10/20 08:58 Last Admin: 02/09/20 08:41 Dose: 1 ea Documented by: [id number] Nicotine (Nicotine 14 Mg/24 Hr Patch) 14 mg TD QAM [facility] Stop: 03/09/20 13:59 Last Admin: 02/09/20 08:27 Dose: 14 mg Documented by: [id number] Admin: 02/08/20 16:14 Dose: 14 mg Documented by: [id number] Ondansetron HCl (Ondansetron Inj 2 Mg/Ml 2 Ml Vial) 4 mg IV Q6H PRN PRN Reason: Nausea Stop: 03/09/20 03:00 Last Admin: 02/08/20 23:51 Dose: 4 mg Documented by: [id number] Medical Decision Making Differential Diagnosis Viral syndrome, COVID, endocarditis, pharyngitis, pneumonia, influenza, meningitis, urinary tract infection, sepsis, bacteremia, as well as other pathologies. Medical Records Attestation: I reviewed the patient's medical records. Home Medications Current Medication List: was personally reviewed by me Laboratory Data Attestation: I reviewed the patient's lab results. Result diagrams: 02/07/20 23:37 02/07/20 23:37 Lab Results 02/07/20 02/07/20 02/07/20 Range/Units 23:25 23:25 23:37 WBC (4.8-10.8) K/uL RBC (4.7-6.1) M/uL Hgb (14.0-18.0) g/dL Hct (42-52) % MCV (80-100) fL MCH (25-34) pg MCHC (32-36) g/dL RDW Std Deviation (36.4-46.3) fL RDW Coeff of Mitchell (11.5-14.5) % Plt Count (130-400) K/uL MPV (7.4-10.4) fL Immature Gran % (Auto) % Neut % (Auto) % Lymph % (Auto) % [place] % (Auto) % Eos % (Auto) % Baso % (Auto) % Neut # (Auto) (1.4-6.5) K/uL Lymph # (Auto) (1.2-3.4) K/uL [place] # (Auto) (0.11-0.59) K/uL Eos # (Auto) (0-0.5) K/uL Baso # (Auto) (0-0.2) K/uL Immature Gran # (Auto) (0.00-0.02) K/uL Platelet Estimate (Normal) PT 12.7 H (9.0-12.0) Seconds INR 1.2 H (0.9-1.1) APTT 34.5 H (21.0-31.0) Seconds PTT Ratio 1.2 Sodium (136-145) mmol/L Potassium (3.5-5.1) mmol/L Chloride (98-107) mmol/L Carbon Dioxide (21-32) mmol/L Anion Gap (3-11) BUN (7-18) mg/dl Creatinine (0.6-1.4) mg/dl Est Cr Clr Drug Dosing ml/min Est GFR ( Amer) Est GFR (Non-Af Amer) BUN/Creatinine Ratio (10-20) Glucose (70-99) mg/dl Lactate (0.4-2.0) mmol/L Calcium (8.5-10.1) mg/dl Total Bilirubin (0.2-1) mg/dl AST (15-37) U/L ALT (12-78) U/L Alkaline Phosphatase (45-117) U/L Troponin I (0-0.045) ng/ml Total Protein (6.4-8.2) gm/dl Albumin (3.4-5.0) gm/dl Globulin (2.5-4.0) gm/dl Albumin/Globulin Ratio (0.9-2) Lipase (73-393) U/L Procalcitonin (0-0.5) ng/ml COVID-19 Eval Order Covid19 IDNow [facility] SARS-CoV-2, RNA, NAAT POSITIVE A* (NEGATIVE) 02/07/20 02/07/20 02/07/20 Range/Units 23:37 23:37 23:37 WBC 6.24 (4.8-10.8) K/uL RBC 4.04 L (4.7-6.1) M/uL Hgb 12.7 L (14.0-18.0) g/dL Hct 38.0 L (42-52) % MCV 94.1 (80-100) fL MCH 31.4 (25-34) pg MCHC 33.4 (32-36) g/dL RDW Std Deviation 47.1 H (36.4-46.3) fL RDW Coeff of Mitchell 13.6 (11.5-14.5) % Plt Count 72 L (130-400) K/uL MPV 12.9 H (7.4-10.4) fL Immature Gran % (Auto) 0.2 % Neut % (Auto) 37.8 % Lymph % (Auto) 48.7 % [place] % (Auto) 13.0 % Eos % (Auto) 0.0 % Baso % (Auto) 0.3 % Neut # (Auto) 2.36 (1.4-6.5) K/uL Lymph # (Auto) 3.04 (1.2-3.4) K/uL [place] # (Auto) 0.81 H (0.11-0.59) K/uL Eos # (Auto) 0.00 (0-0.5) K/uL Baso # (Auto) 0.02 (0-0.2) K/uL Immature Gran # (Auto) 0.01 (0.00-0.02) K/uL Platelet Estimate Decreased L (Normal) PT (9.0-12.0) Seconds INR (0.9-1.1) APTT (21.0-31.0) Seconds PTT Ratio Sodium 134 L (136-145) mmol/L Potassium 3.9 (3.5-5.1) mmol/L Chloride 102 (98-107) mmol/L Carbon Dioxide 25 (21-32) mmol/L Anion Gap 7.0 (3-11) BUN 15 (7-18) mg/dl Creatinine 0.81 (0.6-1.4) mg/dl Est Cr Clr Drug Dosing 125.5 ml/min Est GFR ( Amer) 122.7 Est GFR (Non-Af Amer) 105.8 BUN/Creatinine Ratio 18.0 (10-20) Glucose 82 (70-99) mg/dl Lactate 1.0 (0.4-2.0) mmol/L Calcium 8.2 L (8.5-10.1) mg/dl Total Bilirubin 0.7 (0.2-1) mg/dl AST 308 H (15-37) U/L ALT 186 H (12-78) U/L Alkaline Phosphatase 74 (45-117) U/L Troponin I < 0.015 (0-0.045) ng/ml Total Protein 7.5 (6.4-8.2) gm/dl Albumin 3.0 L (3.4-5.0) gm/dl Globulin 4.5 H (2.5-4.0) gm/dl Albumin/Globulin Ratio 0.7 L (0.9-2) Lipase 913 H (73-393) U/L Procalcitonin (0-0.5) ng/ml COVID-19 Eval Order SARS-CoV-2, RNA, NAAT (NEGATIVE) 02/07/20 Range/Units 23:55 WBC (4.8-10.8) K/uL RBC (4.7-6.1) M/uL Hgb (14.0-18.0) g/dL Hct (42-52) % MCV (80-100) fL MCH (25-34) pg MCHC (32-36) g/dL RDW Std Deviation (36.4-46.3) fL RDW Coeff of Mitchell (11.5-14.5) % Plt Count (130-400) K/uL MPV (7.4-10.4) fL Immature Gran % (Auto) % Neut % (Auto) % Lymph % (Auto) % [place] % (Auto) % Eos % (Auto) % Baso % (Auto) % Neut # (Auto) (1.4-6.5) K/uL Lymph # (Auto) (1.2-3.4) K/uL [place] # (Auto) (0.11-0.59) K/uL Eos # (Auto) (0-0.5) K/uL Baso # (Auto) (0-0.2) K/uL Immature Gran # (Auto) (0.00-0.02) K/uL Platelet Estimate (Normal) PT (9.0-12.0) Seconds INR (0.9-1.1) APTT (21.0-31.0) Seconds PTT Ratio Sodium (136-145) mmol/L Potassium (3.5-5.1) mmol/L Chloride (98-107) mmol/L Carbon Dioxide (21-32) mmol/L Anion Gap (3-11) BUN (7-18) mg/dl Creatinine (0.6-1.4) mg/dl Est Cr Clr Drug Dosing ml/min Est GFR ( Amer) Est GFR (Non-Af Amer) BUN/Creatinine Ratio (10-20) Glucose (70-99) mg/dl Lactate (0.4-2.0) mmol/L Calcium (8.5-10.1) mg/dl Total Bilirubin (0.2-1) mg/dl AST (15-37) U/L ALT (12-78) U/L Alkaline Phosphatase (45-117) U/L Troponin I (0-0.045) ng/ml Total Protein (6.4-8.2) gm/dl Albumin (3.4-5.0) gm/dl Globulin (2.5-4.0) gm/dl Albumin/Globulin Ratio (0.9-2) Lipase (73-393) U/L Procalcitonin 0.54 H (0-0.5) ng/ml COVID-19 Eval Order SARS-CoV-2, RNA, NAAT (NEGATIVE) Imaging Data Radiologist's Impression: XR chest 1V portable CLINICAL HISTORY: Atypical chest pain. COMPARISON STUDY: Chest radiograph October 16, 2019 FINDINGS: Lung volumes are normal. Multifocal bilateral airspace opacities are noted, most evident within the right lower lobes. Cardiac size is normal. Mediastinal contours are normal. There is no evidence for pulmonary edema. IMPRESSION: Multifocal bilateral airspace opacities, most evident within the right lower lobe. The findings represent an infectious process. Radiographic follow-up is recommended to ensure resolution. ACT 112: Negative or not required by law. Electronically signed by: Dariel Lantigua M.D. 02/08/2020 7:05 AM Dictated: 02/08/2004Transcribed: 02/08/20703 CTA CHEST: Comparison: CTA chest 03/27/15. No acute pulmonary embolism. No thoracic aortic aneurysm. Normal heart size. No pericardial effusion. Patchy ground-glass infiltrates which demonstrated crazy paving pattern, the largest in the right lower lobe, suspicious for viral pneumonia. No pleural effusion or pneumothorax. No acute osseous findings. Radiologist: Issac Fischer M.D. Study ready at 01:10 and initial results transmitted at 01:16 ECG Data Attestation: I personally reviewed and interpreted this ECG as follows: Indication: + chest pain Rate (beats per minute): 80 Rhythm: + normal sinus ECG Intervals/blocks: + Normal QRS ECG [place]: + Normal ECG ST segments: + Normal ST segments ECG Findings: + Other (no PAC, no PVC) Blood Pressure Blood Pressure Findings: Elevated blood pressure Blood Pressure Disposition: further management by hospitalist MDM Narrative This pt was evaluated and appeared to be in no distress. He was placed in isolation. IV access was obtained and lab work was drawn. An order for cardiac monitoring was placed and the pt was noted to be in a NSR at 84 bpm. IVF were initiated. Blood cx x 3 sets were obtained and lactate sent. Pt was started on IV vancomycin and zosyn for concern over endocarditis. CXR was significant for patchy infiltrates and RLL PNA. COVID is +. CTA was performed d/t elevated d- dimer, and negative for PE. Case was d/w the hospitalist service for reevaluation and management. Pt is aware of the plan and agrees. Impression & Plan Pneumonia due to 2019-nCoV, Atypical chest pain, IVDU (intravenous drug user), Fever Discharge Plan Visit Data Chief Complaint: Chest Pain Stated Complaint: CHEST PAIN, COUGH ED Provider: Monica Marti Discharge Problem: Pneumonia due to 2019-nCoV, Atypical chest pain, IVDU (intravenous drug user), Fever Patient Disposition: Admitted As Inpatient Condition: Good Discharge Instructions Interventions: ED Discharge Assessment Last Done: 02/08/20 02:49
--- NOTE | 2020-02-08 02:20 | History & Physical Report ---
Date of Service February 08, 2020 Assessment & Plan (1) Pneumonia due to COVID-19 virus: Pneumonia due to Covid 19 virus, right greater than left/asthma- Placed on dexamethasone 6 mg IV every morning. Continue vancomycin IV and Zosyn IV begun in the ED due to active heroin abuse Ventolin HFA 2 puffs 4 times daily as needed Present on Admission?: Yes (2) Heroin abuse: Monitor for withdrawal. Clonidine 0.1 mg p.o. twice daily AWSS protocol with IV Ativan Present on Admission?: Yes (3) Loss of taste: The most concerning symptom of the COVID-19 infection for the patient Present on Admission?: Yes (4) Asthma: See above Present on Admission?: Yes History of Present Illness Chief Complaint: The patient presents to the emergency department with main complaint of generalized fatigue and weakness, loss of taste and smell, and cough Primary Care Provider: NO PCP The patient is a 49-year-old male with a past medical history including heroin abuse, asthma, and tobacco abuse who presents to the emergency department with his main complaint to me of decreased ability to taste foods and unable to eat anything. He reports his last heroin use was earlier today and is concerned about possible withdrawal. Work-up in the emergency department included chest x-ray which shows right greater than left infiltrates. CT angiography PE protocol: Negative for PE or pericardial effusion. Patchy groundglass infiltrates which demonstrated crazy paving pattern the largest in the right lower lobe suspicious for viral pneumonia Allergies Allergy/AdvReac Type Severity Reaction Status Date / Time No Known Allergies Allergy Verified 02/08/20 00:57 Home Medications Medication Instructions Recorded Confirmed Type albuterol sulfate 1 puff INHALATION QID PRN 03/19/19 02/08/20 History Heroin 1 dose INJ DIRECTED 02/08/20 02/08/20 History Past Med/Surg History Medical History (Updated 02/08/20 @ 06:40 by Jason Olmos MD) Asthma Heroin abuse Surgical History No pertinent past surgical history Family History Other Cancer Diabetes Social History Smoking Status: Current every day smoker Tobacco Type: Cigarettes Hx Substance Use: Yes Last Used Substance: Hours (ago) Preferred Language: Indonesian Communication Ability: Effective Tariff Expert Required: No Beliefs That Will Affect Care: None Current Living Situation: Other Feels Safe at Home: Yes Assistive Devices: None Review of Systems Review of Systems: The patient denies chest pain, palpitations, lower extremity swelling, sore throat, fevers, chills, sweats, vomiting, diarrhea , constipation, abdominal pain, pelvic pain, blood in urine or stool, dysuria, urinary frequency or urgency, lightheadedness, dizziness, headache, memory loss, loss of consciousness, rash, abnormal bruising or bleeding, imbalance, focal weakness, numbness or tingling in arms or legs, generalized arthralgias or myalgias, back or neck pain, or night sweats. The review of systems is otherwise negative other than for that already noted above, and at least 10 systems have been reviewed. Physical Exam Physical Exam: The patient is awake, alert and oriented 3, normocephalic and atraumatic, lying in bed and in no acute distress. HEENT--PERRL, EOMI, mucous membranes and oropharynx normal. Neck--supple. No JVD. No bruits. Thyroid normal, trachea midline, no adenopathy. Heart--normal S1 and S2. No murmurs, rubs or gallops. Lungs--coarse breath sounds at the bases, right greater than left. No respiratory distress, no accessory muscle use. Abdomen--normal bowel sounds and soft. Nontender. Nondistended. Extremities--no cyanosis or clubbing. No edema. Dermatologic--normal skin turgor, normal color, no abnormal lymph nodes, no rash. Neurologic--cranial nerves II through XII grossly intact. Rheumatologic--normal range of motion. Psychiatric--normal affect. Results & Data Results & Data ([facility]) Vital Signs (Past 12 Hours) Vital Signs Temp Pulse Pulse Resp BP BP Pulse Ox 02/08/20 00:52 88 20 153/79 H 97 02/08/20 00:18 98.8 F 02/07/20 23:32 84 18 152/71 H 100 02/07/20 23:20 97 02/07/20 23:02 100.6 F H 89 20 138/83 96 Laboratory Results Laboratory Results WBC 6.24 K/uL (4.8-10.8) 02/07/20 23:37 RBC 4.04 M/uL (4.7-6.1) L 02/07/20 23:37 Hgb 12.7 g/dL (14.0-18.0) L 02/07/20 23:37 Hct 38.0 % (42-52) L 02/07/20 23:37 MCV 94.1 fL (80-100) 02/07/20 23: MCH 31.4 pg (25-34) 02/07/20 23:37 MCHC 33.4 g/dL (32-36) 02/07/20 23:37 RDW Std Deviation 47.1 fL (36.4-46.3) H 02/07/20 23: RDW Coeff of Mitchell 13.6 % (11.5-14.5) 02/07/20 23:37 Plt Count 72 K/uL (130-400) L 02/07/20 23:37 MPV 12.9 fL (7.4-10.4) H 02/07/20 23:37 Immature Gran % (Auto) 0.2 % 02/07/20 23:37 Neut % (Auto) 37.8 % 02/07/20 23:37 Lymph % (Auto) 48.7 % 02/07/20 23:37 [place] % (Auto) 13.0 % 02/07/20 23:37 Eos % (Auto) 0.0 % 02/07/20 23:37 Baso % (Auto) 0.3 % 02/07/20 23:37 Neut # (Auto) 2.36 K/uL (1.4-6.5) 02/07/20 23:37 Lymph # (Auto) 3.04 K/uL (1.2-3.4) 02/07/20 23:37 [place] # (Auto) 0.81 K/uL (0.11-0.59) H 02/07/20 23:37 Eos # (Auto) 0.00 K/uL (0-0.5) 02/07/20 23:37 Baso # (Auto) 0.02 K/uL (0-0.2) 02/07/20 23:37 Immature Gran # (Auto) 0.01 K/uL (0.00-0.02) 02/07/20 23:37 Platelet Estimate Decreased (Normal) L 02/07/20 23:37 PT 13.0 Seconds (9.0-12.0) H 02/08/20 05:21 INR 1.2 (0.9-1.1) H 02/08/20 05:21 APTT 34.5 Seconds (21.0-31.0) H 02/07/20 23:37 PTT Ratio 1.2 02/07/20 23:37 Sodium 134 mmol/L (136-145) L 02/07/20 23:37 Potassium 3.9 mmol/L (3.5-5.1) 02/07/20 23:37 Chloride 102 mmol/L (98-107) 02/07/20 23:37 Carbon Dioxide 25 mmol/L (21-32) 02/07/20 23:37 Anion Gap 7.0 (3-11) 02/07/20 23:37 BUN 15 mg/dl (7-18) 02/07/20 23:37 Creatinine 0.81 mg/dl (0.6-1.4) 02/07/20 23:37 Est Cr Clr Drug Dosing 125.5 ml/min 02/07/20 23:37 Est GFR ( Amer) 122.7 02/07/20 23:37 Est GFR (Non-Af Amer) 105.8 02/07/20 23:37 BUN/Creatinine Ratio 18.0 (10-20) 02/07/20 23:37 Glucose 82 mg/dl (70-99) 02/07/20 23:37 Lactate 1.0 mmol/L (0.4-2.0) 02/07/20 23:37 Calcium 8.2 mg/dl (8.5-10.1) L 02/07/20 23:37 Total Bilirubin 0.7 mg/dl (0.2-1) 02/07/20 23:37 AST 308 U/L (15-37) H 02/07/20 23:37 ALT 186 U/L (12-78) H 02/07/20 23:37 Alkaline Phosphatase 74 U/L (45-117) 02/07/20 23:37 Troponin I < 0.015 ng/ml (0-0.045) 02/07/20 23:37 Total Protein 7.5 gm/dl (6.4-8.2) 02/07/20 23:37 Albumin 3.0 gm/dl (3.4-5.0) L 02/07/20 23:37 Globulin 4.5 gm/dl (2.5-4.0) H 02/07/20 23:37 Albumin/Globulin Ratio 0.7 (0.9-2) L 02/07/20 23:37 Lipase 913 U/L (73-393) H 02/07/20 23:37 COVID-19 Eval Order Covid19 IDNow [facility] 02/07/20 23:25 SARS-CoV-2, RNA, NAAT POSITIVE (NEGATIVE) A* 02/07/20 23:25 Diagnostic Findings [facility] Patient: CAT PATIÑO (Male) : 74 Status: ER Date: 02/08/20 00:56 Room #: History: CHEST PAIN, COUGH,SOB, +COVID Slices: [phone] Priors: Tech: Edward Mathias @ [phone] Exams: CTA CHEST Contrast: IV Amt: 117 ML OPTIRAY 320 Accession Numbers: [id number] Preliminary Findings Only See Final Report For Complete Findings CTA CHEST: Comparison: CTA chest 03/27/15. No acute pulmonary embolism. No thoracic aortic aneurysm. Normal heart size. No pericardial effusion. Patchy ground-glass infiltrates which demonstrated crazy paving pattern, the largest in the right lower lobe, suspicious for viral pneumonia. No pleural effusion or pneumothorax. No acute osseous findings. Radiologist: Issac Fischer M.D. Study ready at 01:10 and initial results transmitted at 01:16 *This report constitutes a preliminary interpretation only. Non-acute findings felt to be unrelated to the clinical presentation may not be discussed in this report. The study will be interpreted and a final report will be generated by the local Radiologist the following shift. To reach the hospital radiology department call [phone]. If a discrepancy is found between the preliminary and final interpretations of this study, please notify us via our Client Portal at [email or web address].You can also fax this report with a description of the discrepancy, or include the final report, to our daytime fax number [phone].If faxing, please indicate the severity of discrepancy using one of the following categories: [ ] 1 - Agree/Informational [ ] 2 - Unlikely to Affect Management [ ] 3 - Possible Eventual Change of Management [ ] 4 - Probable Immediate Change of Management For all other patient related information, please fax us at [phone]. [id number] Code Status & VTE Plan Code Status Full code VTE Prophylaxis Plan VTE Prophylaxis will be ordered: Yes PG Care Time/CCT Total # of Minutes Spent Total Time Spent with Patient: Total time spent is greater than 50% in coordination of care (as documented) at patient's floor/unit and/or counseling patient: Coding Level of Care Code 32089 Initial Inpt Care Lvl 3 Diagnoses Pneumonia due to COVID-19 virus U07.1; J12.89 Heroin abuse F11.10 Loss of taste R43.2 Asthma J45.909
[2020-02-08] MEDS ORDERED: ONDANSETRON INJ 2 MG/ML 2 ML VIAL IV PRN (03:01)
[2020-02-08] MEDS ORDERED: ATIVAN IV ALCOHOL WITHDRAWL IV PRN (03:01)
[2020-02-08] MEDS ORDERED: LORazepam 1 MG/2 ML VIAL IV PRN (03:01)
[2020-02-08] MEDS ORDERED: LORazepam 2 MG/4 ML VIAL IV PRN (03:01)
[2020-02-08] MEDS ORDERED: DEXAMETHASONE SOD INJ 10 MG/ML VIAL IV ONE (03:01)
[2020-02-08] MEDS ORDERED: LORazepam 3 MG/6 ML VIAL IV PRN (03:01)
[2020-02-08] MEDS ORDERED: DEXAMETHASONE SOD PHOSPHATE 10 MG in SYRINGE 0 ML IV ONE (03:30)
[2020-02-08] MEDS: NSS + 20MEQ KCL 20 MEQ/1,000 ML BAG IV SCH ×3 (03:52→23:46)
[2020-02-08 05:49] LABS: INR 1.2 (0.9-1.1)
--- NOTE | 2020-02-08 07:07 | XRay Report ---
XR chest 1V portable CLINICAL HISTORY: Atypical chest pain. COMPARISON STUDY: Chest radiograph October 16, 2019 FINDINGS: Lung volumes are normal. Multifocal bilateral airspace opacities are noted, most evident wi thin the right lower lobes. Cardiac size is normal. Mediastinal contours are normal. There is no evid ence for pulmonary edema. IMPRESSION: Multifocal bilateral airspace opacities, most evident within the right lower lobe. The f indings represent an infectious process. Radiographic follow-up is recommended to ensure resolution. ACT 112: Negative or not required by law. Electronically signed by: Dariel Lantigua M.D. 02/08/2020 7:05 AM
--- NOTE | 2020-02-08 07:15 | CT Scan Report ---
CT ANGIOGRAM OF THE CHEST CLINICAL HISTORY: Cough shortness of breath and chest pain COMPARISON STUDY: February 2015, chest x-ray dated 02/07/2020 TECHNIQUE: Following the IV administration of 117 mL of Optiray-320, CT angiogram of the thorax was p erformed from the thoracic inlet to the lung bases utilizing the pulmonary embolus protocol. Images a re reviewed in the axial, sagittal, and coronal planes. IV contrast was administered without complica tion. MIP imaging was performed. A dose lowering technique was utilized adhering to the principles o f ALARA. CT DOSE: 460.11 mGycm FINDINGS: There are minimally enlarged mediastinal and right hilar lymph nodes likely reactive. There was no evidence of thoracic aortic dilatation. There were no pulmonary artery filling defects to indicate acute pulmonary embolism. No pleural effusions are visualized. There are multifocal groundglass opacities consistent with a multifocal pneumonia. The appearance is typical although not diagnostic of Covid 19 pneumonia IMPRESSION: 1. No evidence of acute pulmonary embolism 2. Multifocal groundglass pulmonary opacities, consistent with a multifocal pneumonia ACT 112: Negative or not required by law. Electronically signed by: Riky Maravilla M.D. 02/08/2020 7:14 AM
[2020-02-08] MEDS ORDERED: PIPERACILLIN/TAZOBACTAM 3.375 GM in DEXTROSE 5% 100 ML IV SCH (08:00)
[2020-02-08] MEDS: cloNIDine HCL 0.1 MG TAB PO SCH ×2 (08:35→21:01)
[2020-02-08] MEDS ORDERED: VANCOMYCIN HCL 1,000 MG in SODIUM CHLORIDE 0.9% 250 ML IV SCH (09:00)
[2020-02-08] MEDS ORDERED: AZITHROMYCIN 500 MG in DEXTROSE 5% 250 ML IV SCH (13:15)
--- NOTE | 2020-02-08 13:25 | History & Physical Bridge Note ---
Date of Service February 08, 2020 History & Physical Bridge Note I have examined the patient, reviewed the History & Physical and in the interval since the performance of the History & Physical I have noted the following changes of clinical significance: patient is 99% on room air, had infiltrate on CXR but no fever reviewed chart discussed with patient, will plan for discharge tomorrow morning first thing if he remains on room air
--- NOTE | 2020-02-08 14:34 | Electrocardiogram Report ---
Test Reason : Blood Pressure : / mmHG Vent. Rate : 080 BPM Atrial Rate : 080 BPM P-R Int : 142 ms QRS Dur : 086 ms QT Int : 366 ms P-R-T Axes : 055 047 014 degrees QTc Int : 422 ms Normal sinus rhythm Normal ECG When compared with ECG of 16-OCT-2019 10:08, No significant change was found Confirmed by Carlton Gotti ([id number]) on 02/08/2020 2:33:34 PM Referred By: REFERRED SELF Confirmed By:Carlton Gotti
[2020-02-08] MEDS ORDERED: cefTRIAXone SODIUM 2,000 MG in DEXTROSE 5% 50 ML IV SCH (16:00)
[2020-02-08] MEDS: NICOTINE 14 MG/24 HR PATCH TD SCH (16:14)
[2020-02-09] MEDS ORDERED: DICYCLOMINE HCL 10 MG CAP PO ONE (00:31)
[2020-02-09] MEDS ORDERED: LORazepam 0.5 MG TAB PO STA (00:32)
[2020-02-09 08:07] LABS: INR 1.3 (0.9-1.1); Partial Thromboplastin Ratio 1.2; Partial Thromboplastin Time 32.5 Seconds (21.0-31.0); Prothrombin Time 13.1 Seconds (9.0-12.0)
[2020-02-09] MEDS: NICOTINE 14 MG/24 HR PATCH TD SCH (08:27)
[2020-02-09] MEDS: cloNIDine HCL 0.1 MG TAB PO SCH (08:27)
[2020-02-09] MEDS ORDERED: dexAMETHasone 6 MG in SYRINGE 0 ML IV SCH (09:00)
--- NOTE | 2020-02-09 09:38 | Discharge Summary ---
Date of Service February 09, 2020 Admission HPI Per Admitting Provider The patient is a 49-year-old male with a past medical history including heroin abuse, asthma, and tobacco abuse who presents to the emergency department with his main complaint to me of decreased ability to taste foods and unable to eat anything. He reports his last heroin use was earlier today and is concerned about possible withdrawal. Work-up in the emergency department included chest x-ray which shows right greater than left infiltrates. CT angiography PE protocol: Negative for PE or pericardial effusion. Patchy groundglass infiltrates which demonstrated crazy paving pattern the largest in the right lower lobe suspicious for viral pneumonia Principal Diagnosis COVID 19 infection, dehydration Discharge Exam Constitutional well developed, well nourished and comfortable; no acute distress Neck trachea midline, no thyromegaly Respiratory normal respiratory effort, lungs clear to auscultation Cardiovascular RRR, no murmur, no edema Gastrointestinal (Abdomen) normal bowel sounds, soft, nontender, no hepatosplenomegaly Musculoskeletal no cyanosis or clubbing, extremities motor strength 5/5 Skin no rashes, warm and dry Neurologic patellar DTR's 2+ bilat, sensation intact and PERRL, EOMI, accommodation nl, no face palsy, no dysarthria Psychiatric A+Ox3, euthymic affect Lymphatic no cervical or axillary lymphadenopathy Discharge Data Allergies Allergy/AdvReac Type Severity Reaction Status Date / Time No Known Allergies Allergy Verified 02/08/20 00:57 Consultations 02/08/20 01:21 ED Decision to Admit Stat Ordered Studies 02/08/20 00:23 CT angio chest PE protocol Urgent Hospital Course (1) Pneumonia due to COVID-19 virus: Pneumonia due to Covid 19 virus, right greater than left/asthma- Placed on dexamethasone 6 mg IV initially but since he was on room air this was stopped no need for Remdesivir or plasma no fever, labs stable sense of taste and smell improving stop antibiotics discharge to home, needs to stay well hydrated and well nourished instructed to stay isolated, stay off work until 02/17 (2) Heroin abuse: no signs of withdrawal (3) Loss of taste: The most concerning symptom of the COVID-19 infection for the patient it is improving, eating better (4) Asthma: no wheezing on exam Total Time Total Time Spent Total Time Spent (In Minutes): 20 minutes Total Time Includes: Examination of the Patient, Discharge Planning and Medication Reconciliation Discharge Plan Discharge Items Patient Disposition: Home - Self-Care Reason For Visit: COVID-19 VIRUS INFECTION,PANCREATITIS,HEROIN ABUSE Discharge Diagnosis: COVID 19 infection Condition on Discharge: Good Goals: stay well nourished, well hydrated Activity: Resume your previous activity Non-emergency contact: Primary Care Provider Call non-emergency contact if: you have any medication questions, your symptoms worsen and you have a fever Follow-up/Referrals: PCP,NO [Primary Care Provider] - Diet: Regular Addtl Attending Provider Instructions: Medications: - DEXAMETHASONE: 6mg daily for 5 more days to reduce inflammation - ZITHROMAX: 500mg daily x 3 more days for antibiotic coverage COVID 19 viral infection very subtle changes seen on chest x-ray to suggest a mild pneumonia however, no hypoxia at all complete brief course of above medications important that you stay well hydrated, well nourished, get rest you need to self isolate 10 days from positive test, wear a mask once you are able to leave your home Pending Studies at Discharge: No Stand-Alone Forms: [facility] TUNJI, Smoking Cessation Medications and DC Order Prescriptions: New dexamethasone 2 mg tablet 6 mg PO DAILY 5 Days Qty: 15 RF: 0 azithromycin [Zithromax] 500 mg tablet 500 mg PO DAILY 3 Days Qty: 3 RF: 0 Continued albuterol sulfate 90 mcg/actuation HFA aerosol inhaler 1 puff INHALATION QID PRN (Reason: Wheezing) RF: 0 Heroin 1 dose INJ DIRECTED RF: 0 Discharge Orders: Discharge Order (Routine); Ordered 02/09/20 Ordered By: Alcides Ferro/Other Patient Handouts: Preventing Pneumonia, Symptoms of COVID-19 Infection Admission Data Admit Date/Time: 02/08/20 02:19 Attending Provider: Alcides Brown Admit Provider: Jason Olmos Primary Care Provider: PCP,NO Other Providers: Jason Olmos Other Interventions: Discharge Summary Assessment (RN) Last Done: 02/09/20 09:52 Coding Level of Care Code D/C Day Management <30 mins Diagnoses Pneumonia due to COVID-19 virus U07.1; J12.89 Heroin abuse F11.10 Loss of taste R43.2 Asthma J45.909
== END 2020-02-09 10:17 | disposition home or self-care (01) ==
LOC: ED 22:51 → INTOOBSV 02-08 02:19 → EDINP 02-08 02:19 → SUATTDRO 02-08 02:19 → EDINP 02-08 02:49 → 3E 02-08 13:26

== ENCOUNTER 2020-07-25 23:35 | Observation (INO) ==
[2020-07-25] MEDS ORDERED: DROPERIDOL 5 MG/2 ML VIAL IV STA (23:50)
[2020-07-25] MEDS ORDERED: SODIUM CHLORIDE 0.9% 1000ML 1,000 ML IV STA (23:50)
--- NOTE | 2020-07-25 23:56 | Emergency Department Note ---
History of Present Illness General Chief complaint: Abdominal Pain Stated complaint: ABD PAIN Time Seen by Provider: 07/25/20 23:45 History of Present Illness Maximum Pain Intensity: 7 This 49-year-old IV drug abuser with hepatitis C presents to the ER complaining of right-sided chest and abdominal pain today who last used heroin 3 hours ago Location: Chest and abdomen Quality: Painful Severity: Moderate Duration: Today Timing: Today Context: Patient was concerned and came in Modifying factors: better with nothing; worse with palpation Patient denies fevers, diarrhea, urinary symptoms. He denies HIV. Denies any other recreational drugs. He denies any abdominal surgeries. Home Medications Medication Instructions Recorded Confirmed Type albuterol sulfate 1 puff INHALATION QID PRN 03/19/19 07/26/20 History Allergies Allergy/AdvReac Type Severity Reaction Status Date / Time No Known Allergies Allergy Verified 07/26/20 01:39 Past Med/Surg History Medical History Asthma Heroin abuse Surgical History No pertinent past surgical history Family History Other Cancer Diabetes Social History Smoking Status: Current every day smoker Tobacco Type: Cigarettes Hx Substance Use: Yes Last Used Substance: Hours (ago) Preferred Language: Sinhala Communication Ability: Effective [employer] Department Manager Required: No Beliefs That Will Affect Care: None Current Living Situation: Other Feels Safe at Home: Yes Assistive Devices: None Review of Systems A total of 10 systems reviewed and were otherwise negative Physical Exam Vital Signs Vital Signs - 24 hr 07/25/20 23:41 07/26/20 00:07 07/26/20 00:09 Temperature 37.5 C Temperature Source Temporal Artery Scan Pulse Rate 108 H 86 Pulse Rate from SpO2 Sensor 86 Respiratory Rate 20 16 Blood Pressure 137/90 136/84 Blood Pressure Mean 105 101 Blood Pressure Position Sitting Pulse Oximetry 99 95 96 Oxygen Delivery Method Room Air Room Air Room Air Sepsis Recent Fever Within 48 Hours No Sepsis New/Unexplained Change in Mental Status No Sepsis Action Taken by Nursing No Action Required 07/26/20 00:30 07/26/20 01:30 07/26/20 02:00 Temperature Temperature Source Pulse Rate 82 87 85 Pulse Rate from SpO2 Sensor 83 89 86 Respiratory Rate 15 17 14 Blood Pressure 147/87 H 118/80 135/92 Blood Pressure Mean 107 92 106 Blood Pressure Position Pulse Oximetry 100 96 97 Oxygen Delivery Method Room Air Room Air Room Air Sepsis Recent Fever Within 48 Hours Sepsis New/Unexplained Change in Mental Status Sepsis Action Taken by Nursing 07/26/20 02:35 07/26/20 03:00 Temperature Temperature Source Pulse Rate 86 80 Pulse Rate from SpO2 Sensor 81 Respiratory Rate 22 11 L Blood Pressure 128/92 Blood Pressure Mean 104 Blood Pressure Position Pulse Oximetry 97 Oxygen Delivery Method Room Air Sepsis Recent Fever Within 48 Hours Sepsis New/Unexplained Change in Mental Status Sepsis Action Taken by Nursing VITALS: Vitals are noted on the nurse's note and reviewed by myself. Vital signs stable. GENERAL: Male, in no acute distress, nondiaphoretic, well-developed well- nourished. SKIN: Multiple track membreno, the rest of the skin was without rashes, erythema, edema, or bruising. There is no tenting of the skin. Capillary reflex less than 2 seconds. HEAD: Normocephalic atraumatic. EARS: External auditory canals clear EYES: Pupils equal round and reactive to light and accommodation. Conjunctivae without injection, sclerae without icterus. Extraocular movements intact. NOSE: Patent, turbinates without inflammation or discharge. MOUTH: Mucous membranes moist. Pharynx without erythema or exudate. Uvula midline. Airway patent. Tongue does not deviate. NECK: Supple without nuchal rigidity. No lymphadenopathy. No thyromegaly. Cervical spine is nontender. No JVD. HEART: Regular rate and rhythm LUNGS: Clear to auscultation bilaterally without wheezes, rales or rhonchi. No retractions or accessory muscle use. ABDOMEN: Positive bowel sounds x 4. Normal tympanic percussion. Soft, tender to palpation right upper and lower abdomen, without masses or organomegaly. M urphy sign negative. No guarding or rebound tenderness. No CVA tenderness MUSCULOSKELETAL: No muscle atrophy, erythema, or edema noted. NEURO: Patient was alert and oriented to person place and time. Normal sensation to light and sharp touch. No focal neurological deficits. Course Administered Medications Discontinued Medications Droperidol (Droperidol 5 Mg/2 Ml Vial) 1.25 mg IV ONE STA Stop: 07/25/20 23:51 Last Admin: 07/26/20 00:15 Dose: 1.25 mg Documented by: [id number] Sodium Chloride (Nss 1000ml) 1,000 mls @ 999 mls/hr IV .Q1H1M STA Stop: 07/26/20 00:50 Last Infusion: 07/26/20 01:11 Dose: 0 mls/hr Documented by: [id number] Admin: 07/26/20 00:10 Dose: 999 mls/hr Documented by: [id number] Piperacillin Sod/Tazobactam Sod (Zosyn) 4.5 gm in 120 mls @ 240 mls/hr IV NOW ONE Stop: 07/26/20 02:58 Last Infusion: 07/26/20 03:13 Dose: 0 mls/hr Documented by: [id number] Admin: 07/26/20 02:39 Dose: 240 mls/hr Documented by: [id number] Ioversol (Optiray 350 500ml) 120 ml IV ONCE ONE Stop: 07/25/20 23:58 Last Admin: 07/25/20 23:57 Dose: 120 ml Documented by: [id number] Medical Decision Making Medical Records Attestation: I reviewed the patient's medical records. Home Medications Current Medication List: was personally reviewed by me Laboratory Data Attestation: I reviewed the patient's lab results. Result diagrams: 07/26/20 00:08 07/26/20 00:08 Lab Results 07/26/20 07/26/20 07/26/20 Range/Units 00:08 00:08 01:53 WBC 8.51 (4.8-10.8) K/uL RBC 4.25 L (4.7-6.1) M/uL Hgb 13.5 L (14.0-18.0) g/dL Hct 39.7 L (42-52) % MCV 93.4 (80-100) fL MCH 31.8 (25-34) pg MCHC 34.0 (32-36) g/dL RDW Std Deviation 46.0 (36.4-46.3) fL RDW Coeff of Mitchell 13.5 (11.5-14.5) % Plt Count 88 L (130-400) K/uL MPV 12.5 H (7.4-10.4) fL Immature Gran % (Auto) 0.4 % Neut % (Auto) 91.4 % Lymph % (Auto) 7.2 % Snyder % (Auto) 0.8 % Eos % (Auto) 0.1 % Baso % (Auto) 0.1 % Neut # (Auto) 7.78 H (1.4-6.5) K/uL Lymph # (Auto) 0.61 L (1.2-3.4) K/uL Snyder # (Auto) 0.07 L (0.11-0.59) K/uL Eos # (Auto) 0.01 (0-0.5) K/uL Baso # (Auto) 0.01 (0-0.2) K/uL Immature Gran # (Auto) 0.03 H (0.00-0.02) K/uL Platelet Estimate Decreased L (Normal) Sodium 141 (136-145) mmol/L Potassium 3.5 (3.5-5.1) mmol/L Chloride 109 H (98-107) mmol/L Carbon Dioxide 30 (21-32) mmol/L Anion Gap 2.0 L (3-11) BUN 13 (7-18) mg/dl Creatinine 0.82 (0.6-1.4) mg/dl Est Cr Clr Drug Dosing 125.1 ml/min Est GFR ( Amer) 122.0 ml/min Est GFR (Non-Af Amer) 105.3 ml/min BUN/Creatinine Ratio 15.8 (10-20) Glucose 91 (70-99) mg/dl Calcium 8.5 (8.5-10.1) mg/dl Total Bilirubin 0.8 (0.2-1) mg/dl AST 88 H (15-37) U/L ALT 60 (12-78) U/L Alkaline Phosphatase 94 (45-117) U/L Troponin I < 0.015 (0-0.045) ng/ml Total Protein 7.3 (6.4-8.2) gm/dl Albumin 3.1 L (3.4-5.0) gm/dl Globulin 4.2 H (2.5-4.0) gm/dl Albumin/Globulin Ratio 0.7 L (0.9-2) Lipase 257 (73-393) U/L Specimen Hemolysis Urine Color Yellow Urine Appearance Clear (Clear) Urine pH 8.5 H (4.5-7.5) Ur Specific [place] 1.021 (1.000-1.030) Urine Protein Negative (Negative) Urine Glucose (UA) Negative (Negative) Urine Ketones Negative (Negative) Urine Blood Negative (Negative) Urine Nitrite Negative (Negative) Urine Bilirubin Negative (Negative) Urine Urobilinogen Negative (Negative) Ur Leukocyte Esterase Negative (Negative) COVID-19 Eval Order SARS-CoV-2 (PCR) (Negative) 07/26/20 07/26/20 Range/Units 01:53 01:53 WBC (4.8-10.8) K/uL RBC (4.7-6.1) M/uL Hgb (14.0-18.0) g/dL Hct (42-52) % MCV (80-100) fL MCH (25-34) pg MCHC (32-36) g/dL RDW Std Deviation (36.4-46.3) fL RDW Coeff of Mitchell (11.5-14.5) % Plt Count (130-400) K/uL MPV (7.4-10.4) fL Immature Gran % (Auto) % Neut % (Auto) % Lymph % (Auto) % Snyder % (Auto) % Eos % (Auto) % Baso % (Auto) % Neut # (Auto) (1.4-6.5) K/uL Lymph # (Auto) (1.2-3.4) K/uL Snyder # (Auto) (0.11-0.59) K/uL Eos # (Auto) (0-0.5) K/uL Baso # (Auto) (0-0.2) K/uL Immature Gran # (Auto) (0.00-0.02) K/uL Platelet Estimate (Normal) Sodium (136-145) mmol/L Potassium (3.5-5.1) mmol/L Chloride (98-107) mmol/L Carbon Dioxide (21-32) mmol/L Anion Gap (3-11) BUN (7-18) mg/dl Creatinine (0.6-1.4) mg/dl Est Cr Clr Drug Dosing ml/min Est GFR ( Amer) ml/min Est GFR (Non-Af Amer) ml/min BUN/Creatinine Ratio (10-20) Glucose (70-99) mg/dl Calcium (8.5-10.1) mg/dl Total Bilirubin (0.2-1) mg/dl AST (15-37) U/L ALT (12-78) U/L Alkaline Phosphatase (45-117) U/L Troponin I (0-0.045) ng/ml Total Protein (6.4-8.2) gm/dl Albumin (3.4-5.0) gm/dl Globulin (2.5-4.0) gm/dl Albumin/Globulin Ratio (0.9-2) Lipase (73-393) U/L Specimen Hemolysis Urine Color Urine Appearance (Clear) Urine pH (4.5-7.5) Ur Specific [place] (1.000-1.030) Urine Protein (Negative) Urine Glucose (UA) (Negative) Urine Ketones (Negative) Urine Blood (Negative) Urine Nitrite (Negative) Urine Bilirubin (Negative) Urine Urobilinogen (Negative) Ur Leukocyte Esterase (Negative) COVID-19 Eval Order Covid19 at [facility] SARS-CoV-2 (PCR) NEGATIVE (Negative) Imaging Data Attestation: I personally reviewed and interpreted this imaging study as follows: MDM Narrative Prior records/ancillary studies reviewed and summarized above. Nursing notes reviewed. Additional history obtained from nursing. The patient's history was concerning for chest and abdominal pain and a IV drug abuser. Differential diagnosis: Etiologies such as septic emboli, sepsis, intra-abdominal, cholecystitis, pancreatitis, metabolic, infection, hypo/hyperglycemia, electrolyte abnormalities, cardiac sources, intracerebral event, toxicologic, neurologic, as well as others were entertained. Physical examination: As above. ER treatment provided: IV Lock An order was placed for continuous cardiac monitoring. The monitor shows a rate of 60-1 20 with a sinus rhythm. IV fluids, droperidol On reassessment the patient felt better. Diagnostics interpretation by me: ECG: Ordered for chest pain EKG: Normal sinus, T wave inversion lead III, rate of 79. Impression normal sinus rhythm interpreted by myself I think arrhythmia is unlikely. EKG shows normal sinus rhythm with no interval abnormalities such as QT prolongation or WPW. There are no findings to suggest Brugada syndrome. Cardiac monitoring in the emergency department reveals no tachycardic or bradycardic dysrhythmia. Hypertrophic cardiomyopathy was considered but there are no clear historical elements pointing toward this. EKG is not suggestive. The QRS voltage is not extremely large and there are no suggestive Q waves. The labs revealed mild anemia, stable thrombocytopenia per chart review. Negative troponin Imaging studies: CT CHEST With Contrast: No evidence of PE. Lungs are clear. No pleural effusions. Mildly prominent subcarinal lymph nodes. Heart size is normal. Aorta is unremarkable. CT ABDOMEN & PELVIS With Contrast: Comparison: CT abdomen pelvis without contrast 11/20/2017 There is wall thickening throughout the colon including the cecum, ascending colon, splenic flexure and sigmoid colon with fluid-filled nondilated loops of small bowel throughout the abdomen, consistent with colitis or enterocolitis which could be infectious or inflam matory. Air-fluid level within the right colon consistent with a diarrheal state. The gallbladder is distended with significant wall thickening which is nonspecific but could be seen in the setting of acute cholecystitis or hepatitis among other etiologies. No radiodense gallstones are visualized. Right upper quadrant ultrasound could be performed to further evaluate clinically indicated. Mild periportal edema. Small amount of free fluid is visualized within the pelvis. Radiologist: Heather Farah M.D. HEART SCORE: Hx: high/mod/low suspicion: 0 ECG: ST depression/nonspecific changes/normal: 0 Age: Greater than 65/45-64/less than 45: 1 Risk factors: (Hypertension, hyperlipidemia, diabetes, coronary disease, tobacco use, cocaine use): 1 Troponin: Greater than 2 times normal limits/1-2 times normal limits/normal: 0 Total: 2 Consultation: A consultation was placed with the surgeon, Dr. Patterson and JEFF Looney. the case was discussed and diagnostics were reviewed. The patient was evaluated in the ER for further treatment. Surgery states they will consult medicine to help with the admission. Dr. Rosen was made aware. Exam and history seem consistent with acute cholecystitis. Surgical PA, Aayush, was consulted. Patient was started on antibiotics. Patient will be admitted to the surgical service. Patient is agreeable. By the evaluation outlined above emergent etiologies such as electrolyte abnormalities, cardiac sources, intracerebral event, neurologic, abnormalities blood glucose, metabolic, as well as others were deemed relatively unlikely. The pt informed about the findings as listed above. All questions were answered and pleased with the treatment. The chart was completed utilizing [employer] voice recognition software. Grammatical errors, random word insertions, pronoun errors, and incomplete sentences are an occassional consequence of this system due to software limitations, ambient noise, and hardware issues. Any formal questions or c oncerns about the content, text, or information contained within the body of this dictation should be directly addressed to the physician engineer assistant for clarification. Impression & Plan Acute cholecystitis Discharge Plan Visit Data Chief Complaint: Abdominal Pain Stated Complaint: ABD PAIN ED Provider: Jayme Jimenes ED Midlevel Provider: Kimberly Kay Discharge Problem: Acute cholecystitis Patient Disposition: Being Evaluated by Surgeon Condition: Good Forms Stand Alone Forms: [employer] [facility] [employer] Prescriptions Prescriptions: No Action albuterol sulfate 90 mcg/actuation HFA aerosol inhaler 1 puff INHALATION QID PRN (Reason: Wheezing) RF: 0 Referrals Referrals: PCP,NO [Primary Care Provider] -
[2020-07-25] MEDS ORDERED: OPTIRAY 350 500ml IV ONE (23:57)
[2020-07-26 00:43] LABS: Alanine Aminotransferase 60 U/L (12-78); Albumin Level 3.1 gm/dl (3.4-5.0); Aspartate Aminotransferase 88 U/L (15-37); BUN Creatinine Ratio 15.8 (10-20); Blood Urea Nitrogen 13 mg/dl (7-18); Calcium 8.5 mg/dl (8.5-10.1); Carbon Dioxide 30 mmol/L (21-32); Chloride 109 mmol/L (98-107); Creatinine Clr Calc Pharmacy 125.1 ml/min; Est GFR (Non-African American) 105.3 ml/min; Glucose 91 mg/dl (70-99); Lipase 257 U/L (73-393); Potassium 3.5 mmol/L (3.5-5.1); Sodium 141 mmol/L (136-145)
[2020-07-26 00:49] LABS: Basophils # (auto) 0.01 K/uL (0-0.2); Basophils % (auto) 0.1 %; Eosinophils # (auto) 0.01 K/uL (0-0.5); Eosinophils % (auto) 0.1 %; Hematocrit (blood only) 39.7 % (42-52); Hemoglobin 13.5 g/dL (14.0-18.0); Immature Granulocytes # (auto) 0.03 K/uL (0.00-0.02); Immature Granulocytes % (auto) 0.4 %; Lymphocytes # (auto) 0.61 K/uL (1.2-3.4); Lymphocytes % (auto) 7.2 %; Mean Corpuscular Hemoglobin 31.8 pg (25-34); Mean Corpuscular Volume 93.4 fL (80-100); Mean Platelet Volume 12.5 fL (7.4-10.4); Monocytes # (auto) 0.07 K/uL (0.11-0.59); Monocytes % (auto) 0.8 %; Neutrophils # (auto) 7.78 K/uL (1.4-6.5); Neutrophils % (auto) 91.4 %; Platelet Count 88 K/uL (130-400); Platelet Estimate Decreased (Normal); RDW Coefficient of Variation 13.5 % (11.5-14.5); Red Blood Count 4.25 M/uL (4.7-6.1); White Blood Count 8.51 K/uL (4.8-10.8)
[2020-07-26 00:50] LABS: Albumin Globulin Ratio 0.7 (0.9-2); Alkaline Phosphatase 94 U/L (45-117); Bilirubin,Total 0.8 mg/dl (0.2-1); Globulin 4.2 gm/dl (2.5-4.0); Total Protein 7.3 gm/dl (6.4-8.2); Troponin I < 0.015 ng/ml (0-0.045)
[2020-07-26 02:01] LABS: Appearance Urine Clear (Clear); Bilirubin Urine Negative (Negative); Blood Urine Negative (Negative); Color Urine Yellow; Glucose Urine UA Negative (Negative); Ketones Urine Negative (Negative); Leukocyte Esterase Urine Negative (Negative); Nitrite Urine Negative (Negative); Protein Urine Negative (Negative); Specific Gravity Urine 1.021 (1.000-1.030); Urobilinogen Urine Negative (Negative); pH Urine 8.5 (4.5-7.5)
[2020-07-26] MEDS ORDERED: PIPERACILLIN/TAZOBACTAM 4.5 GM/120 ML BAG IV ONE (02:29)
[2020-07-26] MEDS ORDERED: PIPERACILL/TAZOBAC CONSULT ACTIVE PRN ×2 (02:29→04:45)
--- NOTE | 2020-07-26 02:53 | History & Physical Report ---
Date of Service July 26, 2020 Assessment & Plan (1) Cholecystitis: It appears patient has cholecystitis by clinical exam as well as by CT scan findings. I recommend we proceed in the following manner: Provide antiemetics Provide analgesics Keep patient n.p.o. Utilize IV fluids for hydration Provide antibiotics. The first dose of Zosyn has been administered in the emergency department It appears patient may benefit from a cholecystectomy.Patient is willing to proceed with this procedure. Dr. Avila was seen in the emergency room. Initially he was refusing to come into the hospital however now he has changed his mind and decided to stay saying that he has relatively severe acute cholecystitis. I have discussed with him the need for laparoscopic cholecystectomy with possible open cholecystectomy especially if he were to try to leave the hospital and come back. Plan as outlined above and we will asked the medical team to help us with his care. Plan is for laparoscopic cholecystectomy early this morning History of Present Illness Chief Complaint: Abdominal pain Primary Care Provider: NO PCP This is a 49-year-old male who presented to [facility] emergency department secondary to right upper quadrant and right-sided chest pain that awoke him from his sleep. Patient says that he was in his usual state of health and he ate his usual dinner and ultimately went to bed when his symptoms woke him from sleep as noted above. He does note that the pain is somewhat palliated with pain medicines that are ministered by the emergency department. He denies any provocative factors. States that the pain is primarily located the right upper quadrant of his abdomen with some radiation to his right chest. He denies having any prior abdominal surgeries. Patient does report a history of intravenous heroin use with his most recent drug usage being earlier today. In the emergency department the patient did have a CT scan of his chest abdomen and pelvis. There were no pulmonary emboli or pneumonia noted on the chest CT. On the abdominal portion of the CT scan there was wall thickening noted throughout the colon suggestive of colitis. Patient's gallbladder was also noted to be distended with significant gallbladder wall thickening. No gallstones were noted.Patient had labs emergency department where his white blood cell count was noted be normal. His hemoglobin had a slight decrease at 13.5. His platelet count was also decreased at 88,000. Chemistry profile showed a sodium and potassium were both normal as were his BUN and creatinine. Patient did not have an elevated lipase and his LFTs were unremarkable except for slight elevation of the AST 88. Covid test was performed and is noted to be negative. An EKG was performed did not show any changes indicative of acute ischemia. At the time of my interview the patient was resting comfortably in bed and he was in no distress. Allergies Allergy/AdvReac Type Severity Reaction Status Date / Time No Known Allergies Allergy Verified 07/26/20 01:39 Home Medications Medication Instructions Recorded Confirmed Type albuterol sulfate 1 puff INHALATION QID PRN 03/19/19 07/26/20 History Past Med/Surg History Medical History Asthma Heroin abuse Surgical History No pertinent past surgical history Family History Other Cancer Diabetes Social History Smoking Status: Current every day smoker Tobacco Type: Cigarettes Hx Substance Use: Yes Last Used Substance: Hours (ago) Preferred Language: Nepalese Communication Ability: Effective Lurer Required: No Beliefs That Will Affect Care: None Current Living Situation: Other Feels Safe at Home: Yes Assistive Devices: None Review of Systems Constitutional: no fever and no chills Eyes: no diplopia Ear, Nose, Mouth, Throat: no ear pain Respiratory: no cough and no dyspnea Cardiovascular: + chest pain Gastrointestinal: + abdominal pain, + nausea, + vomiting and + diarrhea/loose stools Genitourinary: no dysuria Musculoskeletal: no back pain Integumentary: no rash Neurologic: no localized weakness Physical Exam Constitutional: well developed and well nourished; no acute distress Eyes: no conjunctival abnormality ENMT: Ears: no hearing impairment Neck: trachea midline Respiratory: normal respiratory effort, lungs clear to auscultation Cardiovascular: Rate/Rhythm: regular rate and regular rhythm Gastrointestinal (Abdomen): Abdomen is soft and nondistended. Bowel sounds are present. There is no rebound tenderness or guarding. Patient did have pain with palpation throughout his abdomen but appear to be greatest in the right upper quadrant. 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 Skin: no rashes, warm and dry Neurologic: moves all extremities Psychiatric: A+Ox3, euthymic affect Results & Data Results & Data ([facility]) Vital Signs (Past 12 Hours) Vital Signs Temp Pulse Resp BP Pulse Ox 07/26/20 02:35 86 22 07/26/20 02:00 85 14 135/92 97 07/26/20 01:30 87 17 118/80 96 07/26/20 00:30 82 15 147/87 H 100 07/26/20 00:09 86 16 136/84 96 07/26/20 00:07 95 07/25/20 23:41 37.5 C 108 H 20 137/90 99 PG Care Time/CCT Total # of Minutes Spent Total Time Spent with Patient: Total time spent is greater than 50% in coordination of care (as documented) at patient's floor/unit and/or counseling patient: Coding Level of Care Code 46610 OBS Care - Level 3 Diagnoses Cholecystitis K81.9
[2020-07-26] MEDS ORDERED: ACETAMINOPHEN 1,000 MG/100 ML VIAL IV PRN (04:45)
[2020-07-26] MEDS ORDERED: ONDANSETRON INJ 2 MG/ML 2 ML VIAL IV PRN ×3 (04:45→09:55)
[2020-07-26] MEDS ORDERED: ALBUTEROL HFA 8 GM INHALER INH PRN (04:45)
[2020-07-26] MEDS ORDERED: HYDROmorphone INJ 0.5 MG/0.5 ML SYR IV PRN (04:45)
[2020-07-26] MEDS ORDERED: LACTATED RINGER'S 1,000 ML IV SCH (04:45)
[2020-07-26] MEDS ORDERED: ALBUT/IPRATROP 3MG/0.5MG NEB 3 ML VIAL NEB PRN (05:37)
--- NOTE | 2020-07-26 05:41 | Hospitalist Consultation ---
Date of Consultation July 26, 2020 Assessment & Plan (1) Acute cholecystitis: Acute cholecystitis/enterocolitis- Ordered by primary surgery team: LR 100 mils per hour IV, Zosyn 3.375 mg IV every 8 hours. Pain control with Tylenol IV and Dilaudid IV. Nausea control with Zofran Would add famotidine 20 mg IV every 12 hours Present on Admission?: Yes (2) Enterocolitis: Patient will be on IV fluids, n.p.o., famotidine and symptomatic treatment with Zofran. Present on Admission?: Yes (3) Heroin abuse: With history of heroin abuse, the patient will need to be watched very closely with Dilaudid Rx by primary team. Will have Narcan available per protocol Would place on AWSS protocol in the event of development of withdrawal. Will not start now due to present use of Dilaudid Present on Admission?: Yes (4) Asthma: Primary team has placed on albuterol HFA as needed Would add duo nebs every 2 hours as needed Present on Admission?: Yes (5) Hepatitis C: History of Present Illness Reason for Consultation: Medical management Requesting Physician: Jose Patterson MD Attending Physician: Jose Patterson MD, [facility] History of Present Illness The patient is a 49-year-old male with a past medical history including IVDA, with last heroin use 3 hours prior to arrival, hepatitis C, COVID-19 virus pneumonia, heroin abuse, asthma and rash. Patient presented to the emergency department with complaint of right-sided chest and abdominal pain that developed today. Work-up in the emergency department included exam and CT findings consistent with cholecystitis. After initial refusal to be admitted, patient agreed to be admitted for potential laparoscopic cholecystectomy with conversion open cholecystectomy if needed. Medicines been consulted to deal with any medical issues that may arise. Allergies Allergy/AdvReac Type Severity Reaction Status Date / Time No Known Allergies Allergy Verified 07/26/20 01:39 Home Medications Medication Instructions Recorded Confirmed Type albuterol sulfate 1 puff INHALATION QID PRN 03/19/19 07/26/20 History Patient History Medical History Asthma Heroin abuse Surgical History No pertinent past surgical history Family History Other Cancer Diabetes Social History Smoking Status: Current every day smoker Tobacco Type: Cigarettes Hx Alcohol Use: No Hx Substance Use: Yes Last Used Substance: Hours (ago) Preferred Language: Korean Communication Ability: Effective Pipe Testing Technician Required: No Beliefs That Will Affect Care: None Current Living Situation: Other Feels Safe at Home: Yes Safety Concerns: Feels Safe At This Time Assistive Devices: None Review of Systems Review of Systems: Limited by patient cooperation Physical Exam Physical Exam: The patient is sedated, normocephalic and atraumatic, lying in bed and in no acute distress. HEENT--PERRL, EOMI, mucous membranes and oropharynx dry. Neck--supple. No JVD. No bruits. Thyroid normal, trachea midline, no adenopathy. Heart--normal S1 and S2. No murmurs, rubs or gallops. Lungs--clear bilaterally, no respiratory distress, no accessory muscle use. Abdomen--normal bowel sounds and soft. Nontender. Nondistended.. Post pain medications Extremities--no cyanosis or clubbing. No edema. Dermatologic--mildly dry Neurologic--limited exam Rheumatologic--limited exam Psychiatric--sedated Results & Data Results & Data ([facility]) Vital Signs (Past 12 Hours) Vital Signs Temp Pulse Pulse Resp BP BP Pulse Ox 07/26/20 04:51 99.3 F 76 18 130/81 96 07/26/20 04:29 79 16 128/78 99 07/26/20 03:00 80 11 L 128/92 97 07/26/20 02:35 86 22 07/26/20 02:00 85 14 135/92 97 07/26/20 01:30 87 17 118/80 96 07/26/20 00:30 82 15 147/87 H 100 07/26/20 00:09 86 16 136/84 96 07/26/20 00:07 95 07/25/20 23:41 99.5 F 108 H 20 137/90 99 Laboratory Results Laboratory Results WBC 8.51 K/uL (4.8-10.8) 07/26/20 00:08 RBC 4.25 M/uL (4.7-6.1) L 07/26/20 00:08 Hgb 13.5 g/dL (14.0-18.0) L 07/26/20 00:08 Hct 39.7 % (42-52) L 07/26/20 00:08 MCV 93.4 fL (80-100) 07/26/20 00:08 MCH 31.8 pg (25-34) 07/26/20 00:08 MCHC 34.0 g/dL (32-36) 07/26/20 00:08 RDW Std Deviation 46.0 fL (36.4-46.3) 07/26/20 00:08 RDW Coeff of [place] 13.5 % (11.5-14.5) 07/26/20 00:08 Plt Count 88 K/uL (130-400) L 07/26/20 00:08 MPV 12.5 fL (7.4-10.4) H 07/26/20 00:08 Immature Gran % (Auto) 0.4 % 07/26/20 00:08 Neut % (Auto) 91.4 % 07/26/20 00:08 Lymph % (Auto) 7.2 % 07/26/20 00:08 [place] % (Auto) 0.8 % 07/26/20 00:08 Eos % (Auto) 0.1 % 07/26/20 00:08 Baso % (Auto) 0.1 % 07/26/20 00:08 Neut # (Auto) 7.78 K/uL (1.4-6.5) H 07/26/20 00:08 Lymph # (Auto) 0.61 K/uL (1.2-3.4) L 07/26/20 00:08 [place] # (Auto) 0.07 K/uL (0.11-0.59) L 07/26/20 00:08 Eos # (Auto) 0.01 K/uL (0-0.5) 07/26/20 00:08 Baso # (Auto) 0.01 K/uL (0-0.2) 07/26/20 00:08 Immature Gran # (Auto) 0.03 K/uL (0.00-0.02) H 07/26/20 00:08 Platelet Estimate Decreased (Normal) L 07/26/20 00:08 Sodium 141 mmol/L (136-145) 07/26/20 00:08 Potassium 3.5 mmol/L (3.5-5.1) 07/26/20 00:08 Chloride 109 mmol/L (98-107) H 07/26/20 00:08 Carbon Dioxide 30 mmol/L (21-32) 07/26/20 00:08 Anion Gap 2.0 (3-11) L 07/26/20 00:08 BUN 13 mg/dl (7-18) 07/26/20 00:08 Creatinine 0.82 mg/dl (0.6-1.4) 07/26/20 00:08 Est Cr Clr Drug Dosing 125.1 ml/min 07/26/20 00:08 Est GFR ( Amer) 122.0 ml/min 07/26/20 00:08 Est GFR (Non-Af Amer) 105.3 ml/min 07/26/20 00:08 BUN/Creatinine Ratio 15.8 (10-20) 07/26/20 00:08 Glucose 91 mg/dl (70-99) 07/26/20 00:08 Calcium 8.5 mg/dl (8.5-10.1) 07/26/20 00:08 Total Bilirubin 0.8 mg/dl (0.2-1) 07/26/20 00:08 AST 88 U/L (15-37) H 07/26/20 00:08 ALT 60 U/L (12-78) 07/26/20 00:08 Alkaline Phosphatase 94 U/L (45-117) 07/26/20 00:08 Troponin I < 0.015 ng/ml (0-0.045) 07/26/20 00:08 Total Protein 7.3 gm/dl (6.4-8.2) 07/26/20 00:08 Albumin 3.1 gm/dl (3.4-5.0) L 07/26/20 00:08 Globulin 4.2 gm/dl (2.5-4.0) H 07/26/20 00:08 Albumin/Globulin Ratio 0.7 (0.9-2) L 07/26/20 00:08 Lipase 257 U/L (73-393) 07/26/20 00:08 Specimen Hemolysis 07/26/20 00:08 Urine Color Yellow 05/29/21 01:53 Urine Appearance Clear (Clear) 07/26/20 01:53 Urine pH 8.5 (4.5-7.5) H 07/26/20 01:53 Ur Specific [place] 1.021 (1.000-1.030) 07/26/20 01:53 Urine Protein Negative (Negative) 07/26/20 01:53 Urine Glucose (UA) Negative (Negative) 07/26/20 01:53 Urine Ketones Negative (Negative) 07/26/20 01:53 Urine Blood Negative (Negative) 07/26/20 01:53 Urine Nitrite Negative (Negative) 07/26/20 01:53 Urine Bilirubin Negative (Negative) 07/26/20 01:53 Urine Urobilinogen Negative (Negative) 07/26/20 01:53 Ur Leukocyte Esterase Negative (Negative) 07/26/20 01:53 COVID-19 Eval Order Covid19 at [facility] [place] 07/26/20 01:53 SARS-CoV-2 (PCR) NEGATIVE (Negative) 07/26/20 01:53 Diagnostic Findings [facility] Patient: CAT PATIÑO (Male) : 74 Status: ER Date: 07/26/20 01:21 Room #: History: SOB , EVAL FOR PE, DIFFUSE ABD PAIN , NAUSEA , VOMITING , DIARRHEA , APPENDIX PRESENT , 120 ML OPTIRAY 350 Slices: [id number] Priors: Tech: Ha Mena @ [id number] Exams: CT CHEST With Contrast, CT ABDOMEN & PELVIS With Contrast Contrast: IV Amt: 120 ML Accession Numbers: [id number], [id number] Preliminary Findings Only See Final Report For Complete Findings CT CHEST With Contrast: No evidence of PE. Lungs are clear. No pleural effusions. Mildly prominent subcarinal lymph nodes. Heart size is normal. Aorta is unremarkable. CT ABDOMEN & PELVIS With Contrast: Comparison: CT abdomen pelvis without contrast 11/20/2017 There is wall thickening throughout the colon including the cecum, ascending colon, splenic flexure and sigmoid colon with fluid-filled nondilated loops of small bowel throughout the abdomen, consistent with colitis or enterocolitis which could be infectious or inflammatory. Air-fluid level within the right colon consistent with a diarrheal state. The gallbladder is distended with significant wall thickening which is nonspecific but could be seen in the setting of acute cholecystitis or hepatitis among other etiologies. No radiodense gallstones are visualized. Right upper quadrant ultrasound could be performed to further evaluate clinically indicated. Mild periportal edema. Small amount of free fluid is visualized within the pelvis. Radiologist: Heather Farah M.D. Study ready at 01:32 and initial results transmitted at 02:18 *This report constitutes a preliminary interpretation only. Non-acute findings felt to be unrelated to the clinical presentation may not be discussed in this report. The study will be interpreted and a final report will be generated by the local Radiologist the following shift. To reach the hospital radiology department call [phone]. If a discrepancy is found between the preliminary and final interpretations of this study, please notify us via our Client Portal at [email or web address].You can also fax this report with a description of the discrepancy, or include the final report, to our daytime fax number [phone].If faxing, please indicate the severity of discrepancy using one of the following categories: [ ] 1 - Agree/Informational [ ] 2 - Unlikely to Affect Management [ ] 3 - Possible Eventual Change of Management [ ] 4 - Probable Immediate Change of Management For all other patient related information, please fax us at [phone]. [id number] PG Care Time/CCT Total # of Minutes Spent Total Time Spent with Patient: Total time spent is greater than 50% in coordination of care (as documented) at patient's floor/unit and/or counseling patient: Coding Level of Care Code 40706 Inpt Consult Level 3 Diagnoses Acute cholecystitis K81.0 Enterocolitis K52.9 Heroin abuse F11.10 Asthma J45.909 Hepatitis C B19.20
[2020-07-26] MEDS ORDERED: FAMOTIDINE 20 MG in SYRINGE 3 ML IV SCH (06:00)
--- NOTE | 2020-07-26 06:24 | History & Physical Bridge Note ---
Date of Service July 26, 2020 History & Physical Bridge Note I have examined the patient, reviewed the History & Physical and in the interval since the performance of the History & Physical I have noted the following changes of clinical significance: no changes noted
[2020-07-26] MEDS ORDERED: BUPIVACAINE 0.5 % 5 MG/1 ML MPF 30ML VIAL ONE (07:00)
--- NOTE | 2020-07-26 07:15 | Anesthesiology Consultation ---
Date of Service July 26, 2020 Assessment & Plan (1) Encounter for pre-operative examination: Chart Review Chart Review: Acceptable Risk for Surgery History Surgery Operation Date: 07/26/20 07:30 Proposed Procedures p Laparoscopic Cholecystectomy - Jose Patterson MD, FACS Height/Weight Height: 6 ft 2 in Weight: 78.7 kg Allergies Allergy/AdvReac Type Severity Reaction Status Date / Time No Known Allergies Allergy Verified 07/26/20 01:39 Medications Home Medications Medication Instructions Recorded Confirmed Last Taken albuterol sulfate 1 puff INHALATION QID PRN 03/19/19 07/26/20 Unknown Active Medications Generic Name Dose Route Start Last Admin Trade Name Freq PRN Reason Stop Dose Admin Lactated Ringer's 1,000 mls @ 100 mls/hr 07/26/20 04:45 07/26/20 05:42 Lr IV 08/25/20 04:44 100 mls/hr .Q10H SHARMILA Administration Famotidine 20 mg/ Syringe 5 mls @ 2.5 mls/min 07/26/20 06:00 07/26/20 06:09 IV 08/25/20 05:59 2.5 mls/min Q12H SHARMILA Administration NPO Date Last Intake of Fluids: 07/26/20 Time Last Intake of Fluids: 00:00 Date Last Intake of Solids: 07/26/20 Time Last Intake of Solids: 00:00 Past Medical History Medical History (Updated 07/26/20 @ 07:15 by Zi Hsieh MD) Asthma Heroin abuse Thrombocytopenia Past Family History Family History Other Cancer Diabetes Past Surgical History Surgical History No pertinent past surgical history Social History Smoking Status: Current every day smoker tobacco type: cigarettes Hx Alcohol Use: No Hx Substance Use: Yes substance use type: marijuana and heroin Last Used Substance: Hours (ago) Physical Exam Vital Signs Last Vital Signs Temp 37.4 C 07/26/20 04:51 Pulse 76 07/26/20 04:51 Resp 18 07/26/20 04:51 BP 130/81 07/26/20 04:51 Pulse Ox 96 07/26/20 04:51 Testing Laboratory Results 07/26/20 00:08 07/26/20 00:08 Urine Color Yellow 07/26/20 01:53 Urine Appearance Clear (Clear) 07/26/20 01:53 Urine pH 8.5 (4.5-7.5) H 07/26/20 01:53 Ur Specific [place] 1.021 (1.000-1.030) 07/26/20 01:53 Urine Protein Negative (Negative) 07/26/20 01:53 Urine Glucose (UA) Negative (Negative) 07/26/20 01:53 Urine Ketones Negative (Negative) 07/26/20 01:53 Urine Nitrite Negative (Negative) 07/26/20 01:53 Ur Leukocyte Esterase Negative (Negative) 07/26/20 01:53 Electrocardiogram Date: 07/26/20 Findings: + NSR @ (88)
[2020-07-26] MEDS ORDERED: NEOSTIGMINE METHYLSULFATE 1 MG/ML 10ML VIAL ONE (07:16)
[2020-07-26] MEDS ORDERED: DEXAMETHASONE SOD INJ 4 MG/ML VIAL ONE (07:16)
[2020-07-26] MEDS ORDERED: PROPOFOL IV EMULSION 10 MG/ML 20 ML VIAL IV ONE (07:16)
[2020-07-26] MEDS ORDERED: LIDOCAINE 2% 2 ML VIAL/AMP(20MG/ML) INFIL ONE (07:16)
[2020-07-26] MEDS ORDERED: GLYCOPYRROLATE 0.2 MG/ML VIAL ONE (07:16)
[2020-07-26] MEDS ORDERED: ONDANSETRON INJ 2 MG/ML 2 ML VIAL ONE (07:16)
[2020-07-26] MEDS ORDERED: fentaNYL citrate 100 MCG/2 ML VIAL ONE ×2 (07:17)
[2020-07-26] MEDS ORDERED: MIDAZOLAM HCL 1 MG/ML 2ML VIAL ONE (07:17)
[2020-07-26] MEDS ORDERED: ALBUTEROL 0.083% NEBU SOLN 3 ML VIAL INH PRN (07:44)
[2020-07-26] MEDS ORDERED: HYDROmorphone INJ 1 MG/ML SYRINGE IV PRN ×2 (07:44→09:55)
[2020-07-26] MEDS ORDERED: KETOROLAC 30 MG/ML VIAL IV PRN (07:44)
[2020-07-26] MEDS ORDERED: ATROPINE SULFATE 0.1 MG/ML 10ML SYR IV PRN (07:44)
--- NOTE | 2020-07-26 07:51 | CT Scan Report ---
CT ANGIOGRAPHY OF THE CHEST, PULMONARY EMBOLUS PROTOCOL CLINICAL HISTORY: Shortness of breath. COMPARISON STUDY: Chest CT February 08, 2020. TECHNIQUE: Following IV administration of 120 mL of Optiray, helical axial images of the chest were o btained utilizing the pulmonary embolus protocol. Maximal intensity projections and sagittal and cor onal reformats were viewed on an independent 3D workstation. IV contrast was administered without co mplication. Automated exposure control was utilized for the study. A dose lowering technique was ut ilized adhering to the principles of ALARA. CT DOSE: 576.53 mGy.cm FINDINGS: No pulmonary emboli are identified. There is no thoracic aortic dissection. Size of the he art is normal. There is no pericardial effusion. CT of the abdomen and pelvis will be reported separa tely. Prominent subcarinal lymph node has decreased in size since prior CT. There is no consolidation to suggest pneumonia. No pneumothorax or pleural effusion is noted. The central airways are patent. There is mild emphysema. IMPRESSION: 1. No pulmonary emboli identified. 2. No acute process within the chest. ACT 112: Negative or not required by law. Electronically signed by: Dariel Lantigua M.D. 07/26/2020 7:50 AM
[2020-07-26] MEDS ORDERED: PIPERACILLIN/TAZOBACTAM 3.375 GM in DEXTROSE 5% 100 ML IV SCH (08:00)
--- NOTE | 2020-07-26 08:03 | CT Scan Report ---
CT OF THE ABDOMEN AND PELVIS WITH CONTRAST CLINICAL HISTORY: Right-sided abdominal pain. COMPARISON STUDY: CT of the abdomen and pelvis November 20, 2018. Right upper quadrant ultrasound J anuary 2019. TECHNIQUE: Following IV administration of 120 mL of Optiray, axial images of the abdomen and pelvis w ere obtained from the lung bases to the proximal femurs. Images were reviewed in the axial, sagittal, and coronal planes. IV contrast was administered without complication. Automated exposure control w as utilized for the study. A dose lowering technique was utilized adhering to the principles of ANA MARÍA Narvaez. FINDINGS: No pneumatosis, free air or portal venous gas is present. 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 Note is made of periportal edema. There is moderate to marked gallbladder wall thickening, a n onspecific finding. There is no biliary or pancreatic ductal dilatation. There is no peripancreatic i nfiltration. The spleen, adrenal glands and kidneys are unremarkable with exception of a 5 mm right r enal calculus. There are no ureteral calculi. There is no hydronephrosis. There is swirling of the sm all bowel mesentery without resultant bowel obstruction. Small amount of ascites within the pelvis is noted. There is trace perihepatic ascites. The ascending colon is fluid filled. There may be mild wa ll thickening of the splenic flexure of the colon. Colonic diverticulosis is noted without evidence f or acute diverticulitis. There is no evidence for acute appendicitis. IMPRESSION: 1. Moderate to marked gallbladder wall thickening. This is a nonspecific finding that can be seen in setting of an etiologies such as acute cholecystitis or hepatitis. 2. No bowel obstruction. Fluid-filled ascending colon is possible mild wall thickening of the splenic flexure of the colon. The findings may reflect a nonspecific colitis. 3. Small amount of ascites within the pelvis. 4. 5 mm right renal calculus. 5. Small paraesophageal varices. ACT 112: Negative or not required by law. Electronically signed by: Dariel Lantigua M.D. 07/26/2020 8:01 AM
[2020-07-26] MEDS ORDERED: KETOROLAC 30 MG/ML VIAL ONE (08:27)
--- NOTE | 2020-07-26 08:44 | Post Operative Brief Note ---
PG Immediate Post Op with CF Date of Surgery July 26, 2020 Pre & Post Diagnosis Operation Date: 07/26/20 07:30 Pre-Op Diagnosis: Cholecystitis Post-Op Diagnosis: Cholecystitis, cirrhosis I identified the patient and participated in the time-out.: Yes Procedure Operation Date: 07/26/20 07:30 Actual Procedures p Laparoscopic Cholecystectomy(Not Applicable) - Jose Patterson MD, FACS Surgeon Jose Patterson MD, FACS Aviation Ordnance Officer nurses Estimated Blood Loss 5 Findings Consistent with Post-Op Diagnosis Specimens Specimen Description: A: gallbladder and contents
[2020-07-26] MEDS ORDERED: KETOROLAC TROMETHAMINE 15 MG/ML VIAL IV ONE (08:46)
[2020-07-26] MEDS ORDERED: HYDROmorphone INJ 0.5 MG/0.5 ML SYR ONE (09:14)
--- NOTE | 2020-07-26 09:25 | Operative Report (OR) ---
DATE OF OPERATION: 07/26/2020 NAME OF OPERATION: Laparoscopic cholecystectomy. PREOPERATIVE DIAGNOSIS: Acute cholecystitis. POSTOPERATIVE DIAGNOSES: Acute cholecystitis with cirrhosis. ANESTHESIA: General. STAFF SURGEON: Jose Patterson MD. PARTS REMOVER: Nurses. DESCRIPTION OF PROCEDURE: The patient was brought in the operating room and placed on the operating table in supine position. His abdomen was prepped and draped in usual fashion. 0.5% plain Marcaine was used to anesthetize all incisions. Incision was made above the umbilicus, carrying dissection down, placing a Veress needle through the fascia producing pneumoperitoneum. An 11 mm port was placed at this level and under visualization, three 5 mm ports were placed, 1 cephalad and 2 laterally. The gallbladder was very distended, acutely inflamed. There was nodularity of the liver consistent with cirrhosis. Dissection was carried out at the vic hepatis after aspirating bile from the gallbladder, identifying the cystic duct and cystic artery. These were clipped and transected. The patient did have significant edema in the wall of the gallbladder. It was dissected away from the liver bed. I did not know there is significant varices. Gallbladder was placed in an Endobag. After appropriate irrigation and hemostasis, the Endobag was removed through the umbilical site. I did have to enlarge the fascial defect to remove the large gallbladder. At this point, all ports were removed. The fascia at the umbilicus closed using 0 Vicryl suture and then the skin reapproximated using subcuticular 4-0 Monocryl with Dermabond. The patient was transferred to recovery room in stable condition. I attest to the content of the Intraoperative Record and any orders documented therein. Any exception s are noted below.
[2020-07-26] MEDS ORDERED: PROMETHAZINE HCL 25 MG in SODIUM CHLORIDE 0.9% 50 ML IV PRN (09:55)
[2020-07-26] MEDS ORDERED: PROMETHAZINE HCL 12.5 MG in SODIUM CHLORIDE 0.9% 50 ML IV PRN (09:55)
[2020-07-26] MEDS ORDERED: IBUPROFEN 600 MG TAB PO PRN (09:55)
[2020-07-26] MEDS ORDERED: MAGNESIUM HYDROXIDE SUSP 30 ML UDC PO SCH (09:55)
[2020-07-26] MEDS ORDERED: oxyCODONE HCL IR 5 MG TAB (IMMEDIATE RELEASE) PO PRN (09:55)
[2020-07-26] MEDS ORDERED: DOCUSATE SODIUM/SENNA 50/8.6MG TAB PO SCH (09:55)
--- NOTE | 2020-07-26 10:04 | Anesthesiology Progress Note ---
Date of Service July 26, 2020 Anesthesia Post Procedure Vital Signs Vital Signs: Temp Pulse Pulse Pulse Resp BP BP 07/26/20 09:35 37.3 C 77 17 137/81 07/26/20 09:25 69 15 148/81 H 07/26/20 09:15 76 15 159/87 H 07/26/20 09:05 80 14 154/81 H 07/26/20 08:55 71 23 152/91 H 07/26/20 08:49 36.5 C 87 18 146/92 H 07/26/20 04:51 37.4 C 76 18 130/81 07/26/20 04:29 79 16 128/78 07/26/20 03:00 80 11 L 128/92 07/26/20 02:35 86 22 07/26/20 02:00 85 14 135/92 07/26/20 01:30 87 17 118/80 07/26/20 00:30 82 15 147/87 H 07/26/20 00:09 86 16 136/84 07/26/20 00:07 07/25/20 23:41 37.5 C 108 H 20 137/90 Pulse Ox 07/26/20 09:35 100 07/26/20 09:25 98 07/26/20 09:15 100 07/26/20 09:05 100 07/26/20 08:55 99 07/26/20 08:49 100 07/26/20 04:51 96 07/26/20 04:29 99 07/26/20 03:00 97 07/26/20 02:35 07/26/20 02:00 97 07/26/20 01:30 96 07/26/20 00:30 100 07/26/20 00:09 96 07/26/20 00:07 95 07/25/20 23:41 99 Pain Intensity Right Abdomen: Pain Intensity: 7 Abdomen: Pain Intensity: 4 Transfer of Care Handoff Completed per policy Notes Mental Status: alert / awake / arousable Patient Amnestic to Procedure: Yes Nausea / Vomiting: adequately controlled Pain: adequately controlled Airway Patency, RR, SpO2: stable & adequate BP & HR: stable & adequate Hydration State: stable & adequate Anesthetic Complications: no major complications apparent
--- NOTE | 2020-07-26 15:15 | Electrocardiogram Report ---
Test Reason : Blood Pressure : / mmHG Vent. Rate : 079 BPM Atrial Rate : 079 BPM P-R Int : 148 ms QRS Dur : 086 ms QT Int : 386 ms P-R-T Axes : 063 052 004 degrees QTc Int : 442 ms Normal sinus rhythm with sinus arrhythmia Minimal voltage criteria for LVH, may be normal variant ST depression consider inferolateral ischemia When compared with ECG of 07-FEB-2020 23:12, ST depression is new Confirmed by Enio Zuleta ([id number]) on 07/26/2020 3:15:26 PM Referred By: REFERRED SELF Confirmed By:Enio Zuleta
--- NOTE | 2020-07-27 10:58 | Discharge Summary (DS) ---
PRINCIPAL DIAGNOSIS: Acute cholecystitis. PROCEDURES: The patient underwent laparoscopic cholecystectomy. HISTORY OF PRESENT ILLNESS: The patient is a 49-year-old male who was admitted through the Emergency Room with abdominal pain. He was taken to the operating room, same day on 07/26/2020 where he underwent laparoscopic cholecystectomy, which showed acute cholecystitis. He did very well and was felt stable for discharge on 07/26/2020 to be followed in the surgical clinic within 1-2 weeks.
== END 2020-07-26 16:21 | disposition home or self-care (01) ==
LOC: 3W 23:35 → ED 23:35 → 3W 07-26 04:29